=== PATIENT | female | born 1965 | race Caucasian/White ===

== ENCOUNTER 2019-02-07 08:23 | Day surgery (SDC) | payer MEDICARE ==
[~2019-02-07] VITALS: Ht 182.9 cm; Wt 74.8 kg
[~2019-02-07 08:23] MED LIST: ABILIFY MYCITE5 MG PO; ALENDRONATE35 MG PO; ALPRAZOLAM0.5 M1 PO; ALPRAZOLAM0.5 MG PO; ASPIRIN LOW DOS81 M2 PO; CALCIUM 600/VIT1 TAB PO; CENTRUM SILVER PO; CLOZAPINE100 MG PO; COLESEVELAM HY625 MG PO; CORLANOR5 MG PO; CYANOCOBAL1000 MCG/M IM; DEPLIN PO; FLUOXETINE40 MG PO; HUMIRA40 MG/0.4 IM; KLOR-CON M2020 MEQ PO; LEVOTHYROXIN50 MCG PO; MAG-OX 400400 MG PO; METO50TA52 PO; METOPROLOL SUCC25 MG PO; OLANZAPINE10 MG PO; PRILOSEC20 MG PO; PROZAC20 MG PO; VITAMIN D31000 UNI1 PO
[2019-02-07] MEDS ORDERED: TRAMADOL HCL50 MG PO (11:10)
[2019-02-07 11:22] VITALS: BP 95/57
== END 2019-02-07 11:30 | disposition home or self-care (01) ==
LOC: ORM 08:23
PROVIDERS: ATTEND Surgery
PROC: 0JB90ZZ Excision of Buttock Subcutaneous Tissue and Fascia, Open Approach (ICD-10-PCS; principal; 2019-02-07)
DX: L72.0 Epidermal cyst (principal); K50.00 Crohn's disease of small intestine without complications; Z79.899 Other long term (current) drug therapy

== ENCOUNTER 2019-06-26 17:44 | Inpatient (IN) | payer MEDICARE ==
[2019-06-26] VITALS (8 sets, daily range): BP systolic 95–127; BP diastolic 52–81
[~2019-06-26] VITALS: Ht 182.9 cm; Wt 69.1 kg
[~2019-06-26 17:44] MED LIST changes: +TRAMADOL HCL50 MG PO
--- NOTE | 2019-06-26 18:34 | NUR ---
PT PRESENTS WITH DIARRHEA THAT HAS BEEN GOING ON SINCE TUESDAY AND ABOUT 12 BOWELS A DAY. PT HAS AN ILEOSTOMY. PT STATES THAT HER PROVIDER ASKED HER TO COME INTO THE ER SINCE HER SODIUM LEVELS WERE LOW. PT DENIES ANY PAIN BUT ADMITS TO DIZZINESS, WEAKNESS, CONFUSION AND LIGHT HEADEDNESS. PT AOX4. WILL CONTINUE TO MONITOR
[2019-06-26 18:55] LABS: HEMATOCRIT 32.7 % (37.0-47.0); HEMOGLOBIN 11.5 g/dl (12.0-16.0); IMMATURE GRANULOCYTES 0.5 % (0.0-5.0); MEAN CELL VOLUME 79.8 fL CALC (80.0-100.0); MEAN CORPUSCULAR HGB CONC 35.2 g/L CALC (32.0-36.0); NEUT# 4.99 thou/uL (2.00-7.15); RED BLOOD COUNT 4.1 mill/uL (4.20-5.60); RED CELL DISTRI WIDTH 15.8 % (11.5-15.5)
[2019-06-26 19:16] LABS: ALBUMIN 4.4 g/dL (3.2-5.0); ALKALINE PHOSPHATASE 121 u/l (38-126); BUN 18 mg/dL (7-17); BUN/CREATININE RATIO 25 (12-20 (CALC)); CARBON DIOXIDE 33 mmol/l (22-30); CREATININE 0.7 mg/dL (0.5-1.0); GFR > 60 ML/MIN (>=60 (CALC)); GFR FOR AFR.AMER. > 60 ML/MIN (>=60 (CALC)); POTASSIUM 3.4 mmol/l (3.5-5.1); SGOT/AST 41 u/l (14-36); TOTAL PROTEIN 8.4 g/dL (6.3-8.2)
[2019-06-26 19:22] LABS: ANION GAP 16 (6-22 (CALC)); BILIRUBIN, TOTAL 1.5 mg/dL (0.0-1.4)
[2019-06-26 19:23] LABS: CHLORIDE 65 mmol/l (95-108); SODIUM 111 mmol/l (137-146)
[2019-06-26 19:27] LABS: MYOGLOBIN 31 ng/mL (0 - 62)
--- NOTE | 2019-06-26 19:30 | NUR ---
ACCESSED THE ILEAL POUCH FOR STOOL SAMPLE. SAMPLE APPEARS ORANGE MUDDY AND WITH SEDIMENT.
--- NOTE | 2019-06-26 20:06 | NUR ---
PT CONCERNED ABOUT WICK WORKING. DESTIN RAMIREZ ON DEVISE AND PT VERBALIZED UNDERSTANDING. PT LET AWARE THAT I WILL BE CHECKING ON HER TO SEE IF SHE WAS SUCCESSFUL ON URINATING. IF SHE CANNOT GET COMFORTABLE ENOUGH, MD WILL BE NOTIFIED FOR ANY OTHER FURTHER TREATMENT THAT MAY HAVE TO BE DONE
[2019-06-26] MEDS ORDERED: PRILOSEC20 MG/CAP PO (20:20)
--- NOTE | 2019-06-26 20:39 | NUR ---
GAVE REPORT TO MARLEY
--- NOTE | 2019-06-26 20:50 | NUR ---
PT TRANSPORTED TO ICU VIA STRETCHER STABLE AND IN NO DISTRESS. PT CARE ASSUMED TO MARLEY. Admission Note Report Given to: Transported by: Wheelchair X Stretcher Transported with: X Nurse Transporter X Patent IV O2 X Marketing Underwriter Location: X ICU MS2
--- NOTE | 2019-06-26 20:51 | NUR ---
54 yr old white female admitted icu5 per stretcher from er. trnsferred x3 to bed per pts request. bed weight obtained. ivf began as ordered. staff nuclear weapons officer shows sinus rhythm 1st degree avb pacs pvcs hr 67. pt requests her mother help with history d/t her short term memory loss. mother retrieved from waiting room. history obtained per mother & er record. oriented to room. pure wick cath placed. fall precautions iniiated.
[2019-06-26 21:06] LABS: URINE BILIRUBIN - DIPSTICK NEGATIVE (NEGATIVE); URINE BLOOD DIPSTICK NEGATIVE (NEGATIVE); URINE COLOR YELLOW; URINE GLUCOSE - DIPSTICK NEGATIVE (NEGATIVE); URINE KETONE NEGATIVE (NEGATIVE); URINE LEUK ESTERASE NEGATIVE (NEGATIVE); URINE NITRITE - DIPSTICK NEGATIVE (Negative); URINE PH 7.5 (4.5-8.0); URINE PROTEIN - DIPSTICK NEGATIVE (NEG-TRACE); URINE SPECIFIC GRAVITY <=1.005
--- NOTE | 2019-06-26 21:25 | NUR ---
lab here. blood drawn.
--- NOTE | 2019-06-26 21:50 | NUR ---
SONATA 5MG PO GIVEN PER REQUEST FOR SLEEP.
[2019-06-26 21:59] LABS: ANION GAP 15 (6-22 (CALC)); BUN 15 mg/dL (7-17); BUN/CREATININE RATIO 22 (12-20 (CALC)); CARBON DIOXIDE 31 mmol/l (22-30); CHLORIDE 72 mmol/l (95-108); CREATININE 0.7 mg/dL (0.5-1.0); GFR > 60 ML/MIN (>=60 (CALC)); GFR FOR AFR.AMER. > 60 ML/MIN (>=60 (CALC)); POTASSIUM 3.3 mmol/l (3.5-5.1)
[2019-06-26 22:04] LABS: SODIUM 115 mmol/l (137-146)
[2019-06-27] VITALS (21 sets, daily range): BP systolic 80–107; BP diastolic 46–65
--- NOTE | 2019-06-27 00:01 | NUR ---
eyes closed. no distress. school librarian shows sinus rebecca 1st degree avb pvcs pacs.
--- NOTE | 2019-06-27 00:35 | NUR ---
lab here. blood drawn.
--- NOTE | 2019-06-27 01:00 | NUR ---
awake. xanax 0.5mg po given per request for sleeo.
[2019-06-27 01:04] LABS: ANION GAP 16 (6-22 (CALC)); BUN 14 mg/dL (7-17); BUN/CREATININE RATIO 25 (12-20 (CALC)); CARBON DIOXIDE 31 mmol/l (22-30); CHLORIDE 74 mmol/l (95-108); CREATININE 0.6 mg/dL (0.5-1.0); GFR > 60 ML/MIN (>=60 (CALC)); GFR FOR AFR.AMER. > 60 ML/MIN (>=60 (CALC)); POTASSIUM 3.4 mmol/l (3.5-5.1)
[2019-06-27 01:06] LABS: SODIUM 118 mmol/l (137-146)
--- NOTE | 2019-06-27 02:00 | NUR ---
eyes closed. no apparent distress. patient monitor shows sinus rhythm 1st degree avb pacs pvcs hr 60.
--- NOTE | 2019-06-27 05:00 | NUR ---
lab here. blood drawn.
[2019-06-27 05:41] LABS: ANION GAP 16 (6-22 (CALC)); BUN 14 mg/dL (7-17); BUN/CREATININE RATIO 26 (12-20 (CALC)); CARBON DIOXIDE 30 mmol/l (22-30); CHLORIDE 77 mmol/l (95-108); CREATININE 0.5 mg/dL (0.5-1.0); GFR > 60 ML/MIN (>=60 (CALC)); GFR FOR AFR.AMER. > 60 ML/MIN (>=60 (CALC)); POTASSIUM 3.2 mmol/l (3.5-5.1); SODIUM 120 mmol/l (137-146)
--- NOTE | 2019-06-27 06:00 | NUR ---
awake. admits "i feel better." no loose stool from ileostomy this shift. pure wick cath conts.
--- NOTE | 2019-06-27 07:45 | NUR ---
PT SITTING UP IN BED, EATING BREAKFAST. A&Ox3. LUNGS CTA, BREATHING EVEN/UNLABORED. S1/S2, STRONG PULSES x4. CAP REFILL -3SEC. SKIN WARM/DRY/PINK. IV SITE HEALTHY. ABD SOFT/DISTENDED/NONTENDER, ILLEOSTOMY PINK/WET; LAST CHANGED YESTERDAY, SMALL AMOUNT OF GOSS LOOSE STOOL IN BAG. ACTIVE BS. DERIK. SPEECH SOUNDS SLURRED. BED IN LOWEST POSTION, WHEELS LOCKED, TOP RAILS UP X2, CALLBELL W/IN REACH.
--- NOTE | 2019-06-27 08:10 | NUR ---
DR REAVES @BEDSIDE WITH PT.
--- NOTE | 2019-06-27 10:15 | NUR ---
PTS OSTOMY EMPTIED OF WATERY GOSS STOOL. PT STATES SHE IS "FARTING" HER OSTOMY HERSELF.
--- NOTE | 2019-06-27 10:27 | NUR ---
Pt consented to receive Pneumococcal vaccination, however states she has received this in the past. No indication to re-vaccinate until pt reaches 65yrs old.
[2019-06-27 10:39] LABS: ANION GAP 15 (6-22 (CALC)); BUN 12 mg/dL (7-17); BUN/CREATININE RATIO 18 (12-20 (CALC)); CARBON DIOXIDE 31 mmol/l (22-30); CHLORIDE 80 mmol/l (95-108); CREATININE 0.6 mg/dL (0.5-1.0); GFR > 60 ML/MIN (>=60 (CALC)); GFR FOR AFR.AMER. > 60 ML/MIN (>=60 (CALC)); SODIUM 123 mmol/l (137-146)
--- NOTE | 2019-06-27 11:30 | NUR ---
PT SITTING UP IN BED, EATING LUNCH. NO S/S OF DISTRESS AT THIS TIEM.
--- NOTE | 2019-06-27 12:40 | NUR ---
FATHER @BEDSIDE BUT PT SLEEPING, PTS "MOTHER WILL BE BY LATER"
--- NOTE | 2019-06-27 13:31 | NUR ---
PT EMPTIED OSTOMY BAG, WHICH FILLED RIGHT BACK UP AGAIN. PT MEDICATED WITH ANTIDIARRHEA MEDICATIONS.
[2019-06-27 13:43] LABS: ANION GAP 18 (6-22 (CALC)); BUN 12 mg/dL (7-17); BUN/CREATININE RATIO 23 (12-20 (CALC)); CARBON DIOXIDE 24 mmol/l (22-30); CHLORIDE 84 mmol/l (95-108); CREATININE 0.5 mg/dL (0.5-1.0); GFR > 60 ML/MIN (>=60 (CALC)); GFR FOR AFR.AMER. > 60 ML/MIN (>=60 (CALC)); POTASSIUM 3.4 mmol/l (3.5-5.1); SODIUM 123 mmol/l (137-146)
--- NOTE | 2019-06-27 15:50 | NUR ---
PTS MOM @BEDSIDE. PT AWAKE, LAYING IN BED, TALKING. NO S/S OF DISTRESS. CALLBELL W/IN REACH. WILL CONTINUE OT MONITOR.
--- NOTE | 2019-06-27 16:11 | NUR ---
PT STATES HER OSTOMY WAS LEAKING; MOM BROUGHT PTS EMERGENCY KIT; PIPE LINE INSPECTOR CHANGED OSTOMY.
--- NOTE | 2019-06-27 17:13 | NUR ---
LAB @BEDSIDE FOR DRAW.
[2019-06-27 17:35] LABS: BUN 12 mg/dL (7-17); BUN/CREATININE RATIO 19 (12-20 (CALC)); CHLORIDE 81 mmol/l (95-108); CREATININE 0.6 mg/dL (0.5-1.0); GFR > 60 ML/MIN (>=60 (CALC)); GFR FOR AFR.AMER. > 60 ML/MIN (>=60 (CALC)); POTASSIUM 3.5 mmol/l (3.5-5.1); SODIUM 125 mmol/l (137-146)
[2019-06-27 17:47] LABS: ANION GAP 16 (6-22 (CALC)); CARBON DIOXIDE 32 mmol/l (22-30)
--- NOTE | 2019-06-27 20:00 | NUR ---
REPORT RECEIVED. ROUNDS MADE AND PLAN OF CARE REVIEWED. DENIES PAIN OR NEEDS AT THIS TIME. SINUS RHYTHM WITH FIRST DEGREE AV BLOCK ON TELEMETRY. MILD HYPOTENSION 84/48 ON L ARM. 105/52 WHEN RECHECKED ON RUE.
--- NOTE | 2019-06-27 22:00 | NUR ---
IVF CONT VIA RAC #20 CATHETER. SBP REMAINS 80-90S WITH MAP AT OR ABOVE 90. HS TOPROL XL HELD CONTRAINDICATED FOR HYPOTENSION. REFER TO FLOWSHEETS FOR COMPLETE ASSESSMENT. PRN MEDS REVIEWED AND PT AWARE MAY REQUEST SONATA AND OR IMMODIUM. NOT NEEDED AT THIS TIME.
[2019-06-28] VITALS (9 sets, daily range): BP systolic 82–112; BP diastolic 49–64
--- NOTE | 2019-06-28 | NUR ---
IVF CHANGED TO NS. LAST SERUM SODIUM LEVEL 125. WILL RECHECK IN AM.
--- NOTE | 2019-06-28 02:00 | NUR ---
REMAINS STABLE AND AFEBRILE. ONLY 100 ML LIQUID STOOL FROM COLOSTOMY SO FAR THIS SHIFT. IMMODIUM MADE AVAILABLE AND OFFERED BUT NOT NEEDED. WILL CONTINUE TO MONITOR.
--- NOTE | 2019-06-28 04:20 | NUR ---
PT C/O TIGHTNESS IN CHEST AFTER UP TO BEDSIDE COMMODE. ALL VITALS STABLE WITH HEART RATE 66 RHYTHM SINUS. SKIN PINK WARM AND DRY. PT REQUESTS XANAX AND STATES SHE HAS ANXIETY AND IT PRESENTS LIKE THIS. 0.5MG PO XANAX GIVEN. STAYED AT BEDSIDE AND SPOKE WITH PT, TIGHTNESS RESOLVED WITHIN 10 TO 15 MINUTES.
[2019-06-28 05:42] LABS: HEMATOCRIT 31.7 % (37.0-47.0); HEMOGLOBIN 10.6 g/dl (12.0-16.0); MEAN CORPUSCULAR HGB 27.7 pG CALC (26.0-32.0); MEAN CORPUSCULAR HGB CONC 33.4 g/L CALC (32.0-36.0); RED BLOOD COUNT 3.82 mill/uL (4.20-5.60); RED CELL DISTRI WIDTH 16.2 % (11.5-15.5)
--- NOTE | 2019-06-28 06:08 | NUR ---
RESTING WELL AFTER XANAX GIVEN. AWAKENED BRIEFLY FOR AM LABWORK AND MORNING MEDS. BP REMAINS LOWER END OF NORMAL W/MAP WNL.
[2019-06-28 06:13] LABS: ANION GAP 13 (6-22 (CALC)); BUN 10 mg/dL (7-17); BUN/CREATININE RATIO 15 (12-20 (CALC)); CARBON DIOXIDE 32 mmol/l (22-30); CHLORIDE 85 mmol/l (95-108); CREATININE 0.7 mg/dL (0.5-1.0); GFR > 60 ML/MIN (>=60 (CALC)); GFR FOR AFR.AMER. > 60 ML/MIN (>=60 (CALC)); POTASSIUM 3.4 mmol/l (3.5-5.1); SODIUM 126 mmol/l (137-146)
--- NOTE | 2019-06-28 07:00 | NUR ---
RECVD REPORT FROM WONG MCGINNIS @START OF SHIFT.
--- NOTE | 2019-06-28 09:02 | NUR ---
UA COLLECTED, SENT TO LAB.
--- NOTE | 2019-06-28 13:03 | NUR ---
EMPTIED OSTOMY x2. PT MEDICATED FOR DIARRHEA.
[2019-06-28 14:13] LABS: ANION GAP 11 (6-22 (CALC)); BUN 12 mg/dL (7-17); BUN/CREATININE RATIO 16 (12-20 (CALC)); CARBON DIOXIDE 35 mmol/l (22-30); CHLORIDE 90 mmol/l (95-108); CREATININE 0.8 mg/dL (0.5-1.0); GFR > 60 ML/MIN (>=60 (CALC)); GFR FOR AFR.AMER. > 60 ML/MIN (>=60 (CALC)); POTASSIUM 3.6 mmol/l (3.5-5.1); SODIUM 132 mmol/l (137-146)
--- NOTE | 2019-06-28 15:43 | NUR ---
PTS ILLEOSTOMY EMPTIED 6X SINCE LUNCH TODAY OF GOSS LIQUID STOOL. PARTIAL BATH COMPLETED, FULL LINEN CHANGE. PT NOW SLEEPING IN BED, MOM READING A BOOK @BEDSIDE.
--- NOTE | 2019-06-28 18:13 | NUR ---
CONTACTED DR REAVES R/T DR DONG RECOMMENDATION OF SODIUM TABS. PER MD, NO NEED FOR SALT TABS, DECREASE FREE WATER.
--- NOTE | 2019-06-28 18:35 | NUR ---
PT TAKEN DOWN TO MOTHERS CAR BY WITH ALL HER BELONGINGS IN STABLE CONDITION. PT ABLE TO TRANSFER ON OWN.
--- NOTE | 2019-06-28 18:36 | NUR ---
PT/MOTHER EDUCATED ON DC INSTRUCTIONS.
== END 2019-06-28 18:36 | disposition home or self-care (01) | DRG 641 ==
LOC: ED 17:44 → ED-I 19:23 → ED 19:36 → ICU 19:37
PROVIDERS: Emergency Medicine; ADMIT Internal Medicine; ATTEND Internal Medicine
DX: E87.1 Hypo-osmolality and hyponatremia (principal); K50.90 Crohn's disease, unspecified, without complications; E87.8 Other disorders of electrolyte and fluid balance, not elsewhere classified; I48.91 Unspecified atrial fibrillation; F20.9 Schizophrenia, unspecified; E03.9 Hypothyroidism, unspecified; E87.3 Alkalosis; D64.9 Anemia, unspecified; E87.6 Hypokalemia; E86.0 Dehydration; E86.1 Hypovolemia; Z93.3 Colostomy status; Z90.49 Acquired absence of other specified parts of digestive tract; I10 Essential (primary) hypertension; R00.2 Palpitations

== ENCOUNTER 2019-07-02 14:15 | Inpatient (IN) | payer MEDICARE ==
[~2019-07-02] VITALS: Ht 182.9 cm; Wt 68.0 kg
[~2019-07-02 14:15] MED LIST changes: +PRILOSEC20 MG/CAP PO
[2019-07-02 14:50] VITALS: BP 99/67
[2019-07-02 15:40] LABS: ALBUMIN 4.4 g/dL (3.2-5.0); ALKALINE PHOSPHATASE 109 u/l (38-126); BUN 36 mg/dL (7-17); BUN/CREATININE RATIO 40 (12-20 (CALC)); CARBON DIOXIDE 30 mmol/l (22-30); CHLORIDE 73 mmol/l (95-108); CREATININE 0.9 mg/dL (0.5-1.0); GFR > 60 ML/MIN (>=60 (CALC)); GFR FOR AFR.AMER. > 60 ML/MIN (>=60 (CALC)); POTASSIUM 4.4 mmol/l (3.5-5.1); SGOT/AST 30 u/l (14-36); TOTAL PROTEIN 8.2 g/dL (6.3-8.2)
[2019-07-02 15:41] LABS: ANION GAP 17 (6-22 (CALC)); BILIRUBIN, TOTAL 0.7 mg/dL (0.0-1.4)
[2019-07-02 15:42] LABS: SODIUM 116 mmol/l (137-146)
--- NOTE | 2019-07-02 16:00 | NUR ---
PT ARRIVES BY WHEELCHAIR FROM [facility], SENT BY DR REAVES. PT PLACED ON MONITOR, IV STARTED, BLOOD DRAWN, IVF BOLUSED ORDERED. PT WITH ILEOSTOMY, HEARD WITH HYPERACTIVE BOWEL SOUNDS. NO REPORT OF PAIN. PT DOES SAY THAT SHE FEELS WEAK AFTER DIARRHEA FOR SEVERAL DAYS. PT PROPERLY ASKS FOR ASSIST WHEN NEEDING TO USE BSC.
[2019-07-02 19:13] VITALS: BP 96/72
--- NOTE | 2019-07-02 19:30 | NUR ---
PATIENT RESTING IN BED AT THIS TIME-C/O FEELING WEAK. FAMILY AT BEDSIDE VISITING. PATIENT IS AWAKE ALERT AND ORIENTEDX3. TELE MONITOR IN PLACE. IV SITE TP LEFT FOREARM INTACT WITH IVF NS PATENT AND INFUSING AT 125CC/HR. SITE IS HEALTHY AT THIS TIME. SAFETY PRECAUTIONS REINFORCED. CALL LIGHT IN REACH. WILL CONT TO MONITOR.
[2019-07-02 20:23] LABS: HEMATOCRIT 32.7 % (37.0-47.0); HEMOGLOBIN 11.2 g/dl (12.0-16.0); IMMATURE GRANULOCYTES 0.4 % (0.0-5.0); MEAN CELL VOLUME 81.3 fL CALC (80.0-100.0); MEAN CORPUSCULAR HGB 27.9 pG CALC (26.0-32.0); MEAN CORPUSCULAR HGB CONC 34.3 g/L CALC (32.0-36.0); NEUT# 4.1 thou/uL (2.00-7.15); RED BLOOD COUNT 4.02 mill/uL (4.20-5.60); RED CELL DISTRI WIDTH 15.1 % (11.5-15.5)
[2019-07-02 20:44] LABS: BUN 30 mg/dL (7-17); BUN/CREATININE RATIO 32 (12-20 (CALC)); CARBON DIOXIDE 29 mmol/l (22-30); CREATININE 0.9 mg/dL (0.5-1.0); GFR > 60 ML/MIN (>=60 (CALC)); GFR FOR AFR.AMER. > 60 ML/MIN (>=60 (CALC)); POTASSIUM 3.7 mmol/l (3.5-5.1)
[2019-07-02 20:47] LABS: ANION GAP 15 (6-22 (CALC)); CHLORIDE 82 mmol/l (95-108); SODIUM 122 mmol/l (137-146)
[2019-07-02] MEDS ORDERED: CREON24000 UNT PO (20:48)
[2019-07-02] MEDS ORDERED: WELCHOL625 MG PO (20:48)
[2019-07-02] MEDS ORDERED: OLANZAPINE ODT20 MG PO (20:49)
[2019-07-02] MEDS ORDERED: FLUOXETINE40 MG PO (20:49)
[2019-07-02] MEDS ORDERED: [UNRECOGNIZED DRUG - OTHER] PO (20:50)
[2019-07-02] MEDS ORDERED: XARELTO20 MG PO (20:50)
[2019-07-02] MEDS ORDERED: SYNTHROID25 MCG PO (20:52)
[2019-07-02 21:09] VITALS: BP 98/52
--- NOTE | 2019-07-02 22:30 | NUR ---
PATIENT RESTING IN BED. IVF CHANGED TO D5NS INFUSING VIA LEFT FOREARM SITE AT 100CC/HR. SITE REMAINS HEALTHY AT THIS TIME. AZACTAM HUNG ORDERED. PATIENT MEDICATED WITH ZYPREXA 25MG INSTEAD OF 30MG PO DUE TO UNAVAILABILTY OF LAST 5MG TAB TO NSG MANAGER SIGN AT THIS TIME. PATIENT MEDICATED WITH XANAX 5MG PO PER PATIENT REQUEST. PATIENI WITH ILEOSTOMY DRAINING LARGE AMT OF GOSS LIQUID. SAFETY PRECAUTIONS REINFORCED. CALL LIGHT IN REACH. WILL CONT TO MONITOR.
[2019-07-03 00:12] VITALS: BP 84/52
[2019-07-03 04:00] VITALS: BP 101/64
--- NOTE | 2019-07-03 04:15 | NUR ---
PATIENT RESTING IN BED ASSISTED TO BSC TO VOID. ASSIST BACK TO THE SIDE OF THE BED AND ILEOSTOMY APPLIANCE EMPTIED FOR 500CC OF LIQUID GOSS FLUID. MIN ASSIST WITH EMPTING THE APPLIANCE. APPLIANCE IS INTACT AT THIS TIME. BACK IN BED. TELE MONITOR IN PLACE. IV SITE TO LEFT FOREARM INTACT WITH IVF D5NS PATENT AND INFUSING AT 100CC/HR. VS TAKEN AND RECORDED. SAFETY PRECAUTIONS REINFORCED. CALL LIGHT IN REACH. WILL CONT TO MONITOR.
[2019-07-03 05:45] LABS: ANION GAP 14 (6-22 (CALC)); BUN 25 mg/dL (7-17); BUN/CREATININE RATIO 31 (12-20 (CALC)); CARBON DIOXIDE 31 mmol/l (22-30); CHLORIDE 85 mmol/l (95-108); CREATININE 0.8 mg/dL (0.5-1.0); GFR > 60 ML/MIN (>=60 (CALC)); GFR FOR AFR.AMER. > 60 ML/MIN (>=60 (CALC)); POTASSIUM 3.5 mmol/l (3.5-5.1); SODIUM 127 mmol/l (137-146)
[2019-07-03 08:00] VITALS: BP 91/56
--- NOTE | 2019-07-03 09:00 | NUR ---
PT IS ALERT, AWAKE, RESTS IN THE BED IN NO DISTRESS. LUNGS CLEAR, RA. PT WITH ILEOSTOMY, HAS HAD SEVERAL GOSS WATERY STOOLS THIS MORNING.
[2019-07-03 10:32] VITALS: BP 91/58
[2019-07-03] MEDS ORDERED: MULTIVITAMIN AD1 TAB PO (11:10)
[2019-07-03] MEDS ORDERED: OLANZAPINE20 MG PO (11:12)
--- NOTE | 2019-07-03 14:00 | NUR ---
PT WITH ILEOSTOMY DRAINING WATERY STOOL, HAS BEEN EMPTIED 3 TIMES. PT PROVIDES CARE FOR IT WITH STANDBY ASSIST TO EMPTY GRADUATE.
--- NOTE | 2019-07-03 16:10 | NUR ---
PT CONTINUES TO EMPTY HER ILEOSTOMY BAG AND CALLING TO HAVE IT EMPTIED. LIQUID HAS THICKENED SOMEWHAT, BUT IS STILL LOOSER THAN HER NORMAL. PT CONCERNED ABOUT DEHYDRATION.
[2019-07-03 16:12] VITALS: BP 92/54
--- NOTE | 2019-07-03 19:30 | NUR ---
PATIENT RESTING IN BED AT THIS TIME-AWAKE ALERT AND ORIENTEDX3. PATIENT STATES THAT SHE IS FEELING SOME IMPROVED. TELE MONITOR IN PLACE. ILEOSTOMY APPLIANCE INTACT TO LEFT ABD WITH LOOSE GOSS COLORED DRAINAGE. IV SITE TO LEFT FOREARM INTACT WITH D5NS PATENT AND INFUSING AT 100CC/HR. SITE IS HEALTHY AT THIS TIME. UP TO THE BSC TO VOID YELLOW URINE. SAFETY PRECAUTIONS REINFORCED. CALL LIGHT IN REACH. WILL CONT TO MONITOR.
[2019-07-03 19:47] VITALS: BP 95/49
--- NOTE | 2019-07-03 20:55 | NUR ---
HS MEDS GIVEN ORDERED. XANAX 0.5MG PO GIVEN PER PATIENT REQUEST. NO OTHER NEEDS VOICED. CALL LIGHT IN REACH. WILL CONT TO MONITOR.
[2019-07-04 00:10] VITALS: BP 99/61
--- NOTE | 2019-07-04 01:09 | NUR ---
APPEARS SLEEPING AT THIS TIME WITH EYES CLOSED. RESPS ARE EVEN AND UNLABORED . IVF PATENT AND INFUSING AT 100CC/HR VIA LEFT FOREARM SITE AT 100CC/HR. TELE MONITOR IN PLACE. CALL LIGHT IN REACH. WILL CONT TO MONITOR.
--- NOTE | 2019-07-04 04:21 | NUR ---
PATIENT RESTING IN BED AT THIS TIME WITH EYES CLOSED. HOB ELEVATED. RESPS ARE EVEN AND UNLABORED. IV SITE TO LEFT FOREARM INTACT WITH IVF D5NS PATENT AND INFUSING AT 100CC/HR. SITE IS HEALTHY AT THIS TIME. TELE MONITOR IN PLACE. CALL LIGHT IN REACH. WILL CONT TO MONITOR.
[2019-07-04 05:01] VITALS: BP 97/60
[2019-07-04 06:05] LABS: ANION GAP 11 (6-22 (CALC)); BUN 12 mg/dL (7-17); BUN/CREATININE RATIO 18 (12-20 (CALC)); CARBON DIOXIDE 28 mmol/l (22-30); CREATININE 0.7 mg/dL (0.5-1.0); GFR > 60 ML/MIN (>=60 (CALC)); GFR FOR AFR.AMER. > 60 ML/MIN (>=60 (CALC)); POTASSIUM 3.2 mmol/l (3.5-5.1); SODIUM 132 mmol/l (137-146)
[2019-07-04 06:38] LABS: CHLORIDE 96 mmol/l (95-108)
[2019-07-04 07:31] VITALS: BP 105/54
--- NOTE | 2019-07-04 09:53 | NUR ---
PT APPEARS AWAKE, ALERT, APPROPRIATE. PT HAS EMPTIED ILEOSTOMY BAG, SEEN TO BE SOFT CONSISTENCY, NOT WATERY YESTERDAY. PT PROVIDED POTASSIUM THIS MORNING PER ORDER. PT HOPES TO GO HOME TODAY.
[2019-07-04 11:08] VITALS: BP 91/50
[2019-07-04] MEDS ORDERED: IMODIUM2 MG PO (11:24)
--- NOTE | 2019-07-04 14:24 | NUR ---
PT HAS BEEN DISCHARGED TO HOME AFTER BEING SEEN BY DR REAVES. PT LEAVES IN STABLE CONDITION, VERBALIZED UNDERSTANDING OF DC INSTRUCTIONS. PT LEAVES DM IN STABLE CONDITION.
== END 2019-07-04 14:19 | disposition home or self-care (01) | DRG 641 ==
LOC: MS2 14:15
PROVIDERS: ADMIT Internal Medicine; ATTEND Internal Medicine
DX: E87.1 Hypo-osmolality and hyponatremia (principal); K50.90 Crohn's disease, unspecified, without complications; K91.2 Postsurgical malabsorption, not elsewhere classified; E87.8 Other disorders of electrolyte and fluid balance, not elsewhere classified; I48.91 Unspecified atrial fibrillation; F20.9 Schizophrenia, unspecified; R19.7 Diarrhea, unspecified; Z79.01 Long term (current) use of anticoagulants; Z93.3 Colostomy status; I10 Essential (primary) hypertension
CPT/HCPCS: Q9967

== ENCOUNTER 2019-08-20 | Emergency (ER) | payer MEDICARE ==
[~2019-08-20] MED LIST changes: +CREON24000 UNT PO; +IMODIUM2 MG PO; +MULTIVITAMIN AD1 TAB PO; +OLANZAPINE ODT20 MG PO; +OLANZAPINE20 MG PO; +SYNTHROID25 MCG PO; +WELCHOL625 MG PO; +XARELTO20 MG PO; +[UNRECOGNIZED DRUG - OTHER] PO
[2019-08-20] MEDS ORDERED: SOTALOL HCL80 MG PO (19:58)
[2019-08-20] MEDS ORDERED: ASPIRIN CHEWABL81 MG PO (19:59)
[2019-08-20 20:28] LABS: IMMATURE GRANULOCYTES 0.3 % (0.0-5.0); MEAN CORPUSCULAR HGB 27.7 pG CALC (26.0-32.0); MEAN CORPUSCULAR HGB CONC 34.2 g/dL CAL (32.0-36.0); NEUT# 5.12 thou/uL (2.00-7.15); RED BLOOD COUNT 4.69 mill/uL (4.20-5.60); RED CELL DISTRI WIDTH 13.9 % (11.5-15.5)
[2019-08-20 20:45] LABS: ALBUMIN 4.6 g/dL (3.2-5.0); ALKALINE PHOSPHATASE 114 u/l (38-126); AMYLASE 66 u/l (30-110); BUN 32 mg/dL (7-17); BUN/CREATININE RATIO 34 (12-20 (CALC)); CARBON DIOXIDE 27 mmol/l (22-30); CHLORIDE 91 mmol/l (95-108); CREATININE 0.9 mg/dL (0.5-1.0); GFR > 60 ML/MIN (>=60 (CALC)); GFR FOR AFR.AMER. > 60 ML/MIN (>=60 (CALC)); LIPASE 242 u/l (23-300); POTASSIUM 3.8 mmol/l (3.5-5.1); SGOT/AST 30 u/l (14-36); TOTAL PROTEIN 8.5 g/dL (6.3-8.2)
[2019-08-20 20:46] LABS: ACT PARTIAL THROMBO TIME 28.8 SECONDS (20.0-32.5); INTERNATIONAL NORMALIZED RATIO 1.1 RATIO (0.7-1.3); PROTHROMBIN TIME 11.4 SECONDS (9.0-12.5)
[2019-08-20 20:51] LABS: ANION GAP 14 (6-22 (CALC)); BILIRUBIN, TOTAL 0.6 mg/dL (0.0-1.4); SODIUM 128 mmol/l (137-146)
[2019-08-20 22:21] LABS: URINE BILIRUBIN - DIPSTICK NEGATIVE (NEGATIVE); URINE BLOOD DIPSTICK NEGATIVE (NEGATIVE); URINE COLOR YELLOW; URINE GLUCOSE - DIPSTICK NEGATIVE (NEGATIVE); URINE KETONE NEGATIVE (NEGATIVE); URINE LEUK ESTERASE NEGATIVE (NEGATIVE); URINE NITRITE - DIPSTICK NEGATIVE (Negative); URINE PROTEIN - DIPSTICK NEGATIVE (NEG-TRACE); URINE SPECIFIC GRAVITY <=1.005; URINE UROBILINOGEN - DIPSTICK 0.2 E.U./dL (0.2)
--- NOTE | 2019-08-26 08:09 | NUR ---
PRELIMINARY BLOOD CULTURES SHOW GRAM POSITIVE COCCI. SPOKE WITH NURSE DELA CRUZ IN ICU @ [facility]. FAXED RESULTS TO [phone]
== END 2019-08-20 23:37 ==
DX: K43.6 Other and unspecified ventral hernia with obstruction, without gangrene (principal); K50.90 Crohn's disease, unspecified, without complications; E87.1 Hypo-osmolality and hyponatremia; Z93.2 Ileostomy status

== ENCOUNTER 2019-11-14 13:07 | Emergency (ER) | payer MEDICARE ==
[~2019-11-14] VITALS: Ht 182.9 cm; Wt 72.0 kg
[~2019-11-14 13:07] MED LIST changes: +ASPIRIN CHEWABL81 MG PO; +SOTALOL HCL80 MG PO
[2019-11-14 13:55] VITALS: BP 127/68
== END 2019-11-14 13:55 | disposition home or self-care (01) ==
LOC: ED 13:07
DX: K94.19 Other complications of enterostomy (principal); L98.491 Non-pressure chronic ulcer of skin of other sites limited to breakdown of skin; I48.91 Unspecified atrial fibrillation; Y83.3 Surgical operation with formation of external stoma as the cause of abnormal reaction of the patient, or of later complication, without mention of misadventure at the time of the procedure; Z90.49 Acquired absence of other specified parts of digestive tract

== ENCOUNTER 2021-01-20 15:52 | Observation (INO) | payer MEDICARE ==
[~2021-01-20] VITALS: Ht 182.9 cm; Wt 66.0 kg
--- NOTE | 2021-01-20 16:02 | NUR ---
PT TO ROOM VIA WHEELCHAIR FOR TRIAGE. DAD ACCOMPANYING PT.
[2021-01-20 17:33] LABS: URINE BILIRUBIN - DIPSTICK NEGATIVE (NEGATIVE); URINE BLOOD DIPSTICK TRACE-INTACT (NEGATIVE); URINE COLOR YELLOW; URINE GLUCOSE - DIPSTICK NEGATIVE (NEGATIVE); URINE KETONE NEGATIVE (NEGATIVE); URINE PH 6.5 (4.5-8.0); URINE PROTEIN - DIPSTICK NEGATIVE (NEG-TRACE); URINE SPECIFIC GRAVITY <=1.005; URINE UROBILINOGEN - DIPSTICK 0.2 E.U./dL (0.2)
[2021-01-20 17:37] LABS: URINE LEUK ESTERASE MODERATE (NEGATIVE); URINE NITRITE - DIPSTICK NEGATIVE (Negative)
[2021-01-20 17:38] LABS: URINE SQUAMOUS EPITHELIAL CELL FEW EPI/hpf (0-FEW)
[2021-01-20 17:41] LABS: HEMATOCRIT 38.8 % (37.0-47.0); HEMOGLOBIN 13.2 g/dl (12.0-16.0); IMMATURE GRANULOCYTES 0.3 % (0.0-5.0); NEUT# 7.5 thou/uL (2.00-7.15); RED BLOOD COUNT 4.55 mill/uL (4.20-5.60); RED CELL DISTRI WIDTH 14.8 % (11.5-15.5)
[2021-01-20 17:46] LABS: MEAN CELL VOLUME 85.3 fL CALC (80.0-100.0)
[2021-01-20 18:04] LABS: ACT PARTIAL THROMBO TIME 28.2 SECONDS (20.0-32.5); INTERNATIONAL NORMALIZED RATIO 1.4 RATIO (0.7-1.3); PROTHROMBIN TIME 14.6 SECONDS (9.0-12.5)
--- NOTE | 2021-01-20 18:23 | NUR ---
PT RESTING IN BED, NO COMPLAINTS, CALL LIGHT IN REACH, AWAITING RESULTS
[2021-01-20 18:27] LABS: ALBUMIN 3.9 g/dL (3.2-5.0); ALKALINE PHOSPHATASE 106 u/l (38-126); ANION GAP 10 (6-22 (CALC)); BILIRUBIN, TOTAL 0.6 mg/dL (0.0-1.4); BUN 18 mg/dL (7-17); BUN/CREATININE RATIO 17 (12-20 (CALC)); CARBON DIOXIDE 24 mmol/l (22-30); CHLORIDE 100 mmol/l (95-108); GFR 58 ML/MIN (>=60 (CALC)); GFR FOR AFR.AMER. > 60 ML/MIN (>=60 (CALC)); SGOT/AST 28 u/l (14-36); SODIUM 130 mmol/l (137-146); TOTAL PROTEIN 7.4 g/dL (6.3-8.2)
--- NOTE | 2021-01-20 20:25 | NUR ---
RESTING QUIETLY AWAITING TEST RESULTS.
--- NOTE | 2021-01-20 21:25 | NUR ---
NO CLINICAL CHANGE. AWAITING DISPO.
[2021-01-20] MEDS ORDERED: CREON24000 UNT PO (22:22)
[2021-01-20] MEDS ORDERED: LEXAPRO10 MG PO (22:22)
[2021-01-20] MEDS ORDERED: METOPROLOL SUCC50 MG PO (22:23)
[2021-01-20] MEDS ORDERED: XANAX0.5 MG PO (22:24)
[2021-01-20] MEDS ORDERED: COLESEVELAM HY625 MG PO (22:25)
[2021-01-20] MEDS ORDERED: MIRTAZAPINE45 M1 PO (22:26)
[2021-01-20] MEDS ORDERED: IMODIUM A-D2 M3 PO (22:28)
[2021-01-20] MEDS ORDERED: SLOWMAG PO (22:29)
[2021-01-20] MEDS ORDERED: PRILOSEC20 MG/CAP PO (22:30)
--- NOTE | 2021-01-20 22:40 | NUR ---
Admission Note Report Given to: WONG GOULD Transported by: Wheelchair X Stretcher Transported with: X Nurse Transporter X Patent IV O2 X Research And Development Specialist Location: ICU X MS2
--- NOTE | 2021-01-20 23:54 | NUR ---
PATIENT ADMITTED TO [facility] VIA STRETCHER TO ROOM 271. TRANSFERRED SELF TO ROOM BED WITH SUPERVISION. ALERT AND ORIENTED. ORIENTED PATIENT TO ROOM AND CALL MORELOS. BED IN LOWEST POSITION WITH WHEELS LOCKED.
[2021-01-21] VITALS (14 sets, daily range): BP systolic 76–112; BP diastolic 45–71
--- NOTE | 2021-01-21 | NUR ---
NOTIFIED ER PROVIDER OF PATIENTS BLOOD PRESSURES REMAINING LOW. LAST BP TAKEN WAS 88/59. SECOND BOLUS FINISHED. VANCO STARTED. INSTRUCTED TO ADMINISTED IVF AT 125ML/HR ORDERS PROVIDE AND CONTINUE TO MONITOR PATIENTS BLOOD PRESSURE. ALSO INSTRUCTED BY ED PHYSICIAN IF BP DROPS FURTHER, NOTIFY FILLING MIXER PHYSICIAN. PATIENT DOES REPORT HAVING LOW BLOOD PRESSURE.
--- NOTE | 2021-01-21 01:05 | NUR ---
CALLED MANUFACTURING SOFTWARE ENGINEER PROVIDER AND INFORMED ABOUT PATIENTS BLOOD PRESSURE CONTINUING TO REMAIN LOW. NEW ORDER GIVEN TO PROVIDE ANOTHER BOLUS OF IVF.
--- NOTE | 2021-01-21 03:05 | NUR ---
CALLED SUGAR CHIPPER MACHINE OPERATOR PROVIDER AND INFORMED OF PATIENTS BLOOD PRESSURE READING 76/45. A MANUAL BLOOD PRESSURE WAS DONE SHOWING 82/52. PATIENT COMPLAINED OF FEELING TIRED. NEW ORDERS RECEIVED. PATIENT TRANSFER TO ICU.
--- NOTE | 2021-01-21 03:38 | NUR ---
PATIENT ARRIVED TO THE FLOOR AT 0315, ROOM 5 VIA BED, ESCORTED BY BLAS BACK. PATIENT WALKED FROM OLD BED TO NEW X1 ASSIST WITHOUT DIFFICULTY. UPON ARRIVAL VS TAKEN. SB/P HAS MAINTAINED ABOVE [address] ROPER CALLED YAIMA WHITE TO HOLD LEVOPHED GTT AT THIS TIME. IVF INFUSING AT 125ML/HR. ON AUDIOLOGIST SR 61. AT 0330 B/P 103/58 61 18 100% RA. DENIES PAIN. NO ACUTE DISTRESS. ED DOCTOR AT BEDSIDE TO DO CENTRAL LINE, PT REFUSED AT THIS TIME, BED IN LOW POSITION. CALL LIGHT WITHIN REACH.
--- NOTE | 2021-01-21 03:40 | NUR ---
CALLED PATIENTS NEXT OF KIN, HER MOM MARIELA AND INFORMED HER OF PATIENTS STATUS.
--- NOTE | 2021-01-21 04:56 | NUR ---
PATIENT LAYING SEMI-FOWLERS B/P 79/49 P 60. PATIENT REPOSITIONED SUPINE B/P RECHECKED 88/51 P 64. PATIENT IS ASYMPTOMATIC. MONITORING. BED IN LOW POSITION. CALL LIGHT WITHIN REACH.
--- NOTE | 2021-01-21 05:57 | NUR ---
PATIENT C/O BACK PAIN 07/09. PATIENT NPO. EDUCATED PATIENT ON CURRENT DIET AGAIN. 1 TOOTHETTE MOISTENED WAS GIVEN TO PATIENT TO MOISTEN MOUTH. PILLOW PLACED BEHIND BACK, PATIENT LYING SLIGHYLY LEFT SIDE LYING FOR COMFORT. IVF 125 ML/HR CONTINUOUS. TOOTHETTE USED AND THROWN AWAY. PATIENT REPORTS HER BASELINE B/P IS SB/P 95ISH. SB/P MAINTAINING 89-90. NO ACUTE DISTRESS. BED IN LOW POSITION. SLIGHT [place]. CALL LIGHT WITHIN REACH.
--- NOTE | 2021-01-21 08:00 | NUR ---
PATIENT IS A/O X3, DOES GET FORGETFUL AT TIMES. 3MM PERRLA. BRISK. VITALS ARE STABLE. DRY MOUTH, SWABS OFTEN TO MOISTEN MOUTH. CLEAR SPEECH. DENIES PAIN AT THIS TIME. CLEAR LUNG SOUNDS. NO COUGH PRESENT. OSTOMY PRSENT ON RIGHT SIDE OF ABDOMEN. EMPTY, PATIENT STATES SHE CHANGES IT OUT HERSELF. STATED HER LAST BM WAS YESTERDAY. STRONG EQUAL HAND MOLDER LABELS. NO ARM DRIFT. NO EDEMA PRESENT AT THIS TIME. NO LEG DRIFT. STRONG PULSES. USES BEDSIDE COMMODE, 500 URINE OUT THIS MORNING. SAFETY MEASURES IN PLACE. CALL LIGHT IN REACH. WILL COTNINUE TO MONITOR PER HOSPITAL'S POLICY.
--- NOTE | 2021-01-21 08:20 | NUR ---
PATIENT PERFORMED ORTHOSTATIC BLOOD PRESSURES, PER DOCTOR'S ORDERS, NEATIVE RESULTS. ABLE TO TRANSFER TO [facility]. AWAITING ORDERS.
--- NOTE | 2021-01-21 08:44 | NUR ---
CALLED MEDSUR FOR A BED, PATIENT WILL BE TRANSFERRING. ORDERS ARE PLACED.
--- NOTE | 2021-01-21 09:47 | NUR ---
CALLED [facility] AGAIN FOR A BED, ROOM 271, THE NURSE ASSIGNED WAS NOT AVAILABLE AT THAT TIME, INFORMED THEM TO HAVE THE NURSE CALL ME FOR REPORT.
--- NOTE | 2021-01-21 10:30 | NUR ---
REPORT GIVEN TO ANNABELLE BACK.
--- NOTE | 2021-01-21 10:30 | NUR ---
RECIEVED REPORT FROM WONG CATHERINE
--- NOTE | 2021-01-21 10:50 | NUR ---
PT RESTING IN SEMI FOWLERS POSIITON. PT IS A/O X3. ASSESSMENT AND VITALS COMPLETED. BP 81/57, HR 69, O2 99% ON ROOM AIR.PT ASYMPTOMATIC. RESPIRATIONS ARE EVEN AND UNLABORED WITH NO DISTRESS NOTED. LUNG SOUNDS ARE CLEAR. HEART RHYTHM NORMAL. BOWEL SOUNDS ARE ACTIVE. #20G LAC INFUSING WITH IVF PER ORDER, SITE REMAINS HEALTHY AND PATENT. SKIN INTACT. COLOSTOMY IN DIANA,LIQUID STOOL NOTED. PT STATES SHE IS SELF CARE AND HAS FAMILY BRINGING IN SUPPLY. PT DENIES OF ANY PAINS OR DISCOMFORTS AT THIS TIME. JOSEPH,ANRP NOTIFIED OF BP, PATIENT CARE MANAGER INFORMED THAT IT IS NORMAL. WILL CONTINUE TO MONITOR.
--- NOTE | 2021-01-21 10:55 | NUR ---
PATIENT TRANSFERRED TO ROOM 271 MEDSUR FLOOR. VITALS ARE STABLE. MASK WAS PLACED ON PATIENT DURING TRANSFER.
--- NOTE | 2021-01-21 12:51 | NUR ---
PT RESTING IN SEMI FOWLERS POSITION WATCHING TV. REPSIRATIONS ARE EVEN AND UNLABORED WITH NO DISTRESS NOTED. #20G LAC INFUSING WITH IVF PER ORDER, SITE REMAINS HALTHY AND PATENT. AID ASSISTED PT WTH EMPTYING COLOMSTOMY BAG. PT DENIES OF ANY ADDITIONAL NEEDS. ALL SAFETY PRECAUTIONS ARE IN PLACE WITH CALL LIGHT IN REACH. WILL CONTINUE TO MONITOR
--- NOTE | 2021-01-21 15:11 | NUR ---
DR DEVLIN AT BEDSIDE.
--- NOTE | 2021-01-21 15:59 | NUR ---
PT RESTING IN SEMI FOWLERS POSITION ON PHONE. RESPIRATIONS ARE EVEN AND UNLABORED WITH NO DISTRESS NOTED, ROOM AIR. #20G LAC INFUSING WITH IVF PER ORDER, SITE REMAINS HEALTHY AND PATENT. COLOSTOMY BAG TO DIANA REMAINS IN PLACE. SUPPLIES BROUGHT IN BY FAMILY. ORDERS FROM DR RODRIGUEZ TO ADVANCE DIET TOLERATED. PT TOLERATING FULL LIQUIDS WELL. PT DENIES OF ANY PAINS OR DISCOMFORTS AT THIS TIME.ALL SAFETY PRECAUTIONS ARE IN PLACE WITH CALL LIGHT IN REACH. WILL CONTINUE TO MONITOR
--- NOTE | 2021-01-21 16:46 | NUR ---
#20G LAC INFILTARTED. UNABLE TO GET IV ACESS. JOSEPH,ANRP NOTIFIED. NO IV NEEDED AT THIS TIME DUE TO PT TOLERATING PO WELL.
--- NOTE | 2021-01-21 18:32 | NUR ---
AGRICULTURAL ECONOMICS PROFESSOR CALLED TO ROOM. PT STATES SHE MADE A MESS. COLOSTOMY BAG FILLED WITH LIQUID STOOL. PT STATES SHE HAS JUST EMPTIED IT. PT ASSISTED WITH EMPTING COLOSTOMY BAG.
--- NOTE | 2021-01-21 20:00 | NUR ---
PHYSICAL ASSESMENT COMPLETE. PT CURRENTLY DENIES PAIN OR DISCOMFORT. SCHEDULED MEDICATIONS AND PRN MEDICATION ADMINISTERED, SEE E-MAR. PT DENIES ANY NEEDS AT THIS TIME. PLAN OF CARE REVIEWED, PT DENIES QUESTIONS, VERBALIZES UNDERSTANDING. ITEMS WITHIN REACH, BED LOCKED IN LOW POSITION W/ BEDRAILS UP X2. CALL MORELOS WITHIN REACH, AGREES TO CALL PRN.
[2021-01-22] VITALS: BP 92/61
--- NOTE | 2021-01-22 01:03 | NUR ---
PT LAYING IN BED WITH EYES CLOSED, APPEARS TO BE SLEEPING, APPEARS COMFORTABLE AND IN NO DISTRESS. RESPIRATIONS REGULAR AND UNLABORED. ITEMS REMAIN WITHIN REACH, CALL MORELOS REMAINS WITHIN REACH. BED REMAINS LOCKED AND IN LOW POSITION WITH BEDRAILS UP X2. WILL CONTINUE TO MONITOR.
[2021-01-22 04:00] VITALS: BP 94/66
[2021-01-22 05:56] LABS: HEMATOCRIT 39.2 % (37.0-47.0); HEMOGLOBIN 12.7 g/dl (12.0-16.0); IMMATURE GRANULOCYTES 0.3 % (0.0-5.0); MEAN CELL VOLUME 87.7 fL CALC (80.0-100.0); MEAN CORPUSCULAR HGB 28.4 pG CALC (26.0-32.0); MEAN CORPUSCULAR HGB CONC 32.4 g/dL CAL (32.0-36.0); NEUT# 3.63 thou/uL (2.00-7.15); RED BLOOD COUNT 4.47 mill/uL (4.20-5.60); RED CELL DISTRI WIDTH 15.1 % (11.5-15.5)
[2021-01-22 06:06] LABS: BUN 10 mg/dL (7-17); BUN/CREATININE RATIO 11 (12-20 (CALC)); CHLORIDE 112 mmol/l (95-108); CREATININE 0.9 mg/dL (0.5-1.0); GFR > 60 ML/MIN (>=60 (CALC)); GFR FOR AFR.AMER. > 60 ML/MIN (>=60 (CALC)); POTASSIUM 3.9 mmol/l (3.5-5.1)
[2021-01-22 06:09] LABS: ANION GAP 13 (6-22 (CALC)); CARBON DIOXIDE 16 mmol/l (22-30); MAGNESIUM 1.9 mg/dL (1.6-2.3); SODIUM 137 mmol/l (137-146)
--- NOTE | 2021-01-22 08:03 | NUR ---
PT AWAKE SITTING IN BED, PT DENIES ANY PAIN OR DISTRESS AT THIS TIME. PT ALERT AND ORIENTED. VS AND ASSESSMENT COMPLETE. NO IV SITE HR NORMAL, LUNGS ARE CLEAR. BREATHS ARE EVEN AND UNLABORED. SAFETY MEASUSRESD ARE IN PLACE. CALL LIGHT WITHIN PATIENT REACH. COLOSTOMY INTACT REINFORCED DRESSING. WILL MONITOR PATIENT CLOSELY
[2021-01-22 10:44] VITALS: BP 112/65
--- NOTE | 2021-01-22 12:19 | NUR ---
PT ALERT AND ORIENTED. PT DENIES ANY NEEDS AT THIS TIME. WILL CONTINUE TO MONITOR PATIENT CLOSELY
[2021-01-22 13:06] VITALS: BP 109/64
--- NOTE | 2021-01-22 14:01 | NUR ---
PT GIVEN DISCHARGE INSTRUCTIONS. PT VERBALIZES UNDERSTANDING
== END 2021-01-22 13:51 | disposition home or self-care (01) ==
LOC: ED 15:52 → ED-I 20:40 → ED 21:48 → MS2 21:49 → ICU 01-21 03:00 → MS2 01-21 10:50
PROVIDERS: Physician Assistant Surgical; ADMIT Internal Medicine; ATTEND Internal Medicine
DX: K91.2 Postsurgical malabsorption, not elsewhere classified (principal); K50.90 Crohn's disease, unspecified, without complications; E86.0 Dehydration; I95.9 Hypotension, unspecified; E87.6 Hypokalemia; E87.1 Hypo-osmolality and hyponatremia; K21.9 Gastro-esophageal reflux disease without esophagitis; I48.91 Unspecified atrial fibrillation; F20.9 Schizophrenia, unspecified; F32.9 Major depressive disorder, single episode, unspecified; Z93.3 Colostomy status; Z90.49 Acquired absence of other specified parts of digestive tract; Z20.822 Contact with and (suspected) exposure to COVID-19; E83.42 Hypomagnesemia; I10 Essential (primary) hypertension
CPT/HCPCS: J3475

== ENCOUNTER 2021-12-17 10:38 | Emergency (ER) | payer MEDICARE ==
[~2021-12-17] VITALS: Ht 182.9 cm; Wt 59.0 kg
[2021-12-17] VITALS (7 sets, daily range): BP systolic 101–123; BP diastolic 55–75
[~2021-12-17 10:38] MED LIST changes: +ABILIFY30 MG PO; +CODEINE SULF PO; +DULOXETINE HCL30 MG PO; -HUMIRA40 MG/0.4 IM; +HUMIRA40 MG/0.4 SC; +IMODIUM A-D2 M3 PO; +LEXAPRO10 MG PO; +MAG-OXIDE200 MG PO; +METOPROLOL SUCC50 MG PO; +MIDODRINE HYDR2.5 MG PO; +MIRTAZAPINE15 MG PO; -OLANZAPINE ODT20 MG PO; +SOD CHLORIDE1 GM PO; +XANAX0.5 MG PO; +XIFAXAN550 MG PO
[2021-12-17] MEDS ORDERED: XARELTO15 MG PO (11:53)
[2021-12-17 11:56] LABS: BUN 27 mg/dL (7-17); BUN/CREATININE RATIO 37 (12-20 (CALC)); CARBON DIOXIDE 30 mmol/l (22-30); CHLORIDE 86 mmol/l (95-108); CREATININE 0.7 mg/dL (0.5-1.0); GFR FOR AFR.AMER. > 60 ML/MIN (>=60 (CALC)); GFR OTHER RACES > 60 ML/MIN (>=60 (CALC)); POTASSIUM 5.1 mmol/l (3.5-5.1); SGOT/AST 30 u/l (14-36)
[2021-12-17] MEDS ORDERED: IMODIUM2 MG PO (11:56)
[2021-12-17 11:57] LABS: ALBUMIN 4.4 g/dL (3.2-5.0); ALKALINE PHOSPHATASE 162 u/l (38-126); ANION GAP 16 (6-22 (CALC)); BILIRUBIN, TOTAL 0.4 mg/dL (0.0-1.4); SODIUM 127 mmol/l (137-146); TOTAL PROTEIN 8.8 g/dL (6.3-8.2)
[2021-12-17 12:02] LABS: IMMATURE GRANULOCYTES 0.4 % (0.0-5.0); MEAN CORPUSCULAR HGB 29.2 pG CALC (26.0-32.0); MEAN CORPUSCULAR HGB CONC 32.9 g/dL CAL (32.0-36.0); NEUT# 7.15 thou/uL (2.00-7.15); RED BLOOD COUNT 4.38 mill/uL (4.20-5.60); RED CELL DISTRI WIDTH 14.3 % (11.5-15.5)
[2021-12-17 12:31] LABS: HEMATOCRIT 38.9 % (37.0-47.0); HEMOGLOBIN 12.8 g/dl (12.0-16.0); MEAN CELL VOLUME 88.8 fL CALC (80.0-100.0)
[2021-12-17] MEDS ORDERED: LOPRESSOR25 M1 PO (12:44)
== END 2021-12-17 13:09 | disposition home or self-care (01) ==
LOC: ED 10:38
PROVIDERS: Emergency Medicine
DX: S00.83XA Contusion of other part of head, initial encounter (principal); W01.0XXA Fall on same level from slipping, tripping and stumbling without subsequent striking against object, initial encounter; Y92.014 Private driveway to single-family (private) house as the place of occurrence of the external cause; S09.90XA Unspecified injury of head, initial encounter; I48.91 Unspecified atrial fibrillation

== ENCOUNTER 2022-01-01 12:48 | Emergency (ER) | payer MEDICARE ==
[2022-01-01] VITALS (14 sets, daily range): BP systolic 83–106; BP diastolic 44–67
[~2022-01-01] VITALS: Ht 182.9 cm; Wt 58.0 kg
[~2022-01-01 12:48] MED LIST changes: +LOPRESSOR25 M1 PO; +XARELTO15 MG PO
[2022-01-01 13:50] LABS: HEMATOCRIT 34.6 % (37.0-47.0); HEMOGLOBIN 11.8 g/dl (12.0-16.0); IMMATURE GRANULOCYTES 0.2 % (0.0-5.0); MEAN CORPUSCULAR HGB CONC 34.1 g/dL CAL (32.0-36.0); NEUT# 5.47 thou/uL (2.00-7.15); RED BLOOD COUNT 4.07 mill/uL (4.20-5.60); RED CELL DISTRI WIDTH 14.4 % (11.5-15.5)
[2022-01-01 14:09] LABS: ALBUMIN 4.1 g/dL (3.2-5.0); ALKALINE PHOSPHATASE 158 u/l (38-126); ANION GAP 15 (6-22 (CALC)); BILIRUBIN, TOTAL 0.5 mg/dL (0.0-1.4); BUN 32 mg/dL (7-17); BUN/CREATININE RATIO 37 (12-20 (CALC)); CARBON DIOXIDE 31 mmol/l (22-30); CHLORIDE 89 mmol/l (95-108); CREATININE 0.9 mg/dL (0.5-1.0); GFR FOR AFR.AMER. > 60 ML/MIN (>=60 (CALC)); GFR OTHER RACES > 60 ML/MIN (>=60 (CALC)); LIPASE 44 u/l (23-300); MAGNESIUM 1.5 mg/dL (1.6-2.3); POTASSIUM 4.3 mmol/l (3.5-5.1); SGOT/AST 30 u/l (14-36); SODIUM 130 mmol/l (137-146); TOTAL PROTEIN 7.8 g/dL (6.3-8.2)
== END 2022-01-01 16:20 | disposition short-term general hospital (02) ==
LOC: ED 12:48
PROVIDERS: Internal Medicine
DX: K55.9 Vascular disorder of intestine, unspecified (principal); K66.8 Other specified disorders of peritoneum; K50.90 Crohn's disease, unspecified, without complications; K21.9 Gastro-esophageal reflux disease without esophagitis; I48.91 Unspecified atrial fibrillation; F32.A Depression, unspecified; Z90.49 Acquired absence of other specified parts of digestive tract; Z93.3 Colostomy status

== ENCOUNTER 2022-01-08 07:59 | Emergency (ER) | payer MEDICARE ==
[2022-01-08] VITALS (15 sets, daily range): BP systolic 78–130; BP diastolic 42–69
[~2022-01-08] VITALS: Ht 182.9 cm; Wt 55.0 kg
[2022-01-08 08:38] LABS: HEMATOCRIT 32.2 % (37.0-47.0); HEMOGLOBIN 10.5 g/dl (12.0-16.0); IMMATURE GRANULOCYTES 0.7 % (0.0-5.0); MEAN CELL VOLUME 89.4 fL CALC (80.0-100.0); MEAN CORPUSCULAR HGB 29.2 pG CALC (26.0-32.0); MEAN CORPUSCULAR HGB CONC 32.6 g/dL CAL (32.0-36.0); NEUT# 4.5 thou/uL (2.00-7.15); RED BLOOD COUNT 3.6 mill/uL (4.20-5.60); RED CELL DISTRI WIDTH 15.6 % (11.5-15.5)
[2022-01-08 08:48] LABS: ALBUMIN 3.4 g/dL (3.2-5.0); ALKALINE PHOSPHATASE 97 u/l (38-126); BUN 13 mg/dL (7-17); BUN/CREATININE RATIO 18 (12-20 (CALC)); CREATININE 0.7 mg/dL (0.5-1.0); GFR FOR AFR.AMER. > 60 ML/MIN (>=60 (CALC)); GFR OTHER RACES > 60 ML/MIN (>=60 (CALC)); SGOT/AST 33 u/l (14-36); SODIUM 136 mmol/l (137-146); TOTAL PROTEIN 7.2 g/dL (6.3-8.2)
[2022-01-08 08:50] LABS: ANION GAP 14 (6-22 (CALC)); BILIRUBIN, TOTAL 0.2 mg/dL (0.0-1.4); CARBON DIOXIDE 14 mmol/l (22-30); CHLORIDE 112 mmol/l (95-108)
[2022-01-08 08:57] LABS: URINE BILIRUBIN - DIPSTICK NEGATIVE (NEGATIVE); URINE BLOOD DIPSTICK TRACE-INTACT (NEGATIVE); URINE COLOR YELLOW; URINE GLUCOSE - DIPSTICK NEGATIVE (NEGATIVE); URINE KETONE NEGATIVE (NEGATIVE); URINE LEUK ESTERASE NEGATIVE (NEGATIVE); URINE PROTEIN - DIPSTICK NEGATIVE (NEG-TRACE); URINE SPECIFIC GRAVITY <=1.005; URINE UROBILINOGEN - DIPSTICK 0.2 E.U./dL (0.2)
[2022-01-08 09:00] LABS: URINE NITRITE - DIPSTICK NEGATIVE (Negative)
== END 2022-01-08 14:01 | disposition home or self-care (01) ==
LOC: ED 07:59
PROVIDERS: Internal Medicine
DX: E87.8 Other disorders of electrolyte and fluid balance, not elsewhere classified (principal); J98.4 Other disorders of lung; K21.9 Gastro-esophageal reflux disease without esophagitis; I48.91 Unspecified atrial fibrillation; Z90.49 Acquired absence of other specified parts of digestive tract

== ENCOUNTER 2022-02-06 20:13 | Observation (INO) | payer MEDICARE ==
[2022-02-06] VITALS (17 sets, daily range): BP systolic 80–115; BP diastolic 47–75
[~2022-02-06] VITALS: Ht 182.9 cm; Wt 61.4 kg
[~2022-02-06 20:13] MED LIST changes: +ABILIFY10 M1 PO; -ABILIFY30 MG PO; +OLANZAPINE15 MG PO
--- NOTE | 2022-02-06 20:40 | NUR ---
pt resting, medicated with Toradol , to have CT abd. Bp borderline hypotensive, will watch closely.
--- NOTE | 2022-02-06 21:00 | NUR ---
Tolerating oral contract, pt to go to CT at 2300, ns bolus infusing for BP.
[2022-02-06 21:06] LABS: HEMATOCRIT 34.1 % (37.0-47.0); HEMOGLOBIN 11.1 g/dl (12.0-16.0); IMMATURE GRANULOCYTES 0.1 % (0.0-5.0); MEAN CELL VOLUME 89.5 fL CALC (80.0-100.0); MEAN CORPUSCULAR HGB 29.1 pG CALC (26.0-32.0); MEAN CORPUSCULAR HGB CONC 32.6 g/dL CAL (32.0-36.0); NEUT# 6.77 thou/uL (2.00-7.15); RED BLOOD COUNT 3.81 mill/uL (4.20-5.60); RED CELL DISTRI WIDTH 15.2 % (11.5-15.5)
[2022-02-06 21:17] LABS: ALBUMIN 3.6 g/dL (3.2-5.0); ALKALINE PHOSPHATASE 129 u/l (38-126); ANION GAP 12 (6-22 (CALC)); BILIRUBIN, TOTAL 0.2 mg/dL (0.0-1.4); BUN 16 mg/dL (7-17); BUN/CREATININE RATIO 25 (12-20 (CALC)); CARBON DIOXIDE 28 mmol/l (22-30); CHLORIDE 100 mmol/l (95-108); CPK 47 u/l (30-165); CREATININE 0.7 mg/dL (0.5-1.0); GFR FOR AFR.AMER. > 60 ML/MIN (>=60 (CALC)); GFR OTHER RACES > 60 ML/MIN (>=60 (CALC)); LIPASE 17 u/l (23-300); MAGNESIUM 1.6 mg/dL (1.6-2.3); POTASSIUM 3.9 mmol/l (3.5-5.1); SGOT/AST 31 u/l (14-36); SODIUM 136 mmol/l (137-146); TOTAL PROTEIN 7.1 g/dL (6.3-8.2)
--- NOTE | 2022-02-06 21:20 | NUR ---
GASTROGRAFFIN STARTED.
--- NOTE | 2022-02-06 23:00 | NUR ---
Second liter infusing, LR bolus to assist in elevating BP. Pt states normally low. Bp 96/[address]
[2022-02-07] VITALS (9 sets, daily range): BP systolic 81–97; BP diastolic 48–61
--- NOTE | 2022-02-07 00:55 | NUR ---
All results back, pt to be admitted, resting comfortably. small amt of water per Dr. Perez provided tpo pt. Report to Bryce on ms.
[2022-02-07 08:46] LABS: HEMATOCRIT 34.7 % (37.0-47.0); IMMATURE GRANULOCYTES 0.2 % (0.0-5.0); MEAN CELL VOLUME 89.9 fL CALC (80.0-100.0); MEAN CORPUSCULAR HGB 28.5 pG CALC (26.0-32.0); MEAN CORPUSCULAR HGB CONC 31.7 g/dL CAL (32.0-36.0); NEUT# 4.71 thou/uL (2.00-7.15); RED BLOOD COUNT 3.86 mill/uL (4.20-5.60); RED CELL DISTRI WIDTH 15.5 % (11.5-15.5)
[2022-02-07 08:53] LABS: ALBUMIN 3.3 g/dL (3.2-5.0); ALKALINE PHOSPHATASE 124 u/l (38-126); ANION GAP 11 (6-22 (CALC)); BUN 14 mg/dL (7-17); BUN/CREATININE RATIO 21 (12-20 (CALC)); CARBON DIOXIDE 29 mmol/l (22-30); CHLORIDE 102 mmol/l (95-108); CREATININE 0.6 mg/dL (0.5-1.0); GFR FOR AFR.AMER. > 60 ML/MIN (>=60 (CALC)); GFR OTHER RACES > 60 ML/MIN (>=60 (CALC)); POTASSIUM 3.6 mmol/l (3.5-5.1); SGOT/AST 27 u/l (14-36); SODIUM 138 mmol/l (137-146); TOTAL PROTEIN 6.6 g/dL (6.3-8.2)
[2022-02-07 08:54] LABS: BILIRUBIN, TOTAL 0.3 mg/dL (0.0-1.4)
[2022-02-07] MEDS ORDERED: IMODIUM2 MG PO (12:52)
[2022-02-08] VITALS (7 sets, daily range): BP systolic 84–109; BP diastolic 43–62
[2022-02-08 05:42] LABS: HEMATOCRIT 29.7 % (37.0-47.0); HEMOGLOBIN 9.4 g/dl (12.0-16.0); IMMATURE GRANULOCYTES 0.4 % (0.0-5.0); MEAN CELL VOLUME 90.3 fL CALC (80.0-100.0); MEAN CORPUSCULAR HGB 28.6 pG CALC (26.0-32.0); MEAN CORPUSCULAR HGB CONC 31.6 g/dL CAL (32.0-36.0); NEUT# 3.09 thou/uL (2.00-7.15); RED BLOOD COUNT 3.29 mill/uL (4.20-5.60); RED CELL DISTRI WIDTH 15.5 % (11.5-15.5)
[2022-02-08 05:54] LABS: ANION GAP 11 (6-22 (CALC)); BUN 9 mg/dL (7-17); BUN/CREATININE RATIO 14 (12-20 (CALC)); CARBON DIOXIDE 26 mmol/l (22-30); CHLORIDE 107 mmol/l (95-108); CREATININE 0.6 mg/dL (0.5-1.0); GFR FOR AFR.AMER. > 60 ML/MIN (>=60 (CALC)); GFR OTHER RACES > 60 ML/MIN (>=60 (CALC)); MAGNESIUM 1.6 mg/dL (1.6-2.3); POTASSIUM 3.2 mmol/l (3.5-5.1); SODIUM 140 mmol/l (137-146)
[2022-02-08] MEDS ORDERED: LEVAQUIN750 M1 PO (09:38)
[2022-02-08] MEDS ORDERED: METRONIDAZOLE500 MG PO (09:38)
== END 2022-02-08 11:00 | disposition home health service (06) ==
LOC: ED 20:13 → ED-I 23:42 → ED 02-07 00:06 → MS2 02-07 00:07
PROVIDERS: Family Medicine; ADMIT Internal Medicine; ATTEND Internal Medicine
DX: K63.89 Other specified diseases of intestine (principal); K50.10 Crohn's disease of large intestine without complications; E87.1 Hypo-osmolality and hyponatremia; K21.9 Gastro-esophageal reflux disease without esophagitis; I48.91 Unspecified atrial fibrillation; I95.9 Hypotension, unspecified; F25.9 Schizoaffective disorder, unspecified; R41.3 Other amnesia; K91.2 Postsurgical malabsorption, not elsewhere classified; Y83.6 Removal of other organ (partial) (total) as the cause of abnormal reaction of the patient, or of later complication, without mention of misadventure at the time of the procedure; Z90.49 Acquired absence of other specified parts of digestive tract; Z93.0 Tracheostomy status; Z93.2 Ileostomy status; Z20.822 Contact with and (suspected) exposure to COVID-19
CPT/HCPCS: Q9967

== ENCOUNTER 2022-04-22 09:47 | Day surgery (SDC) | payer MEDICARE ==
[~2022-04-22] VITALS: Ht 182.9 cm; Wt 61.2 kg
[~2022-04-22 09:47] MED LIST changes: +D32000 UNI1 PO; +HUMIRA40 MG/0.4; +LEVAQUIN750 M1 PO; +LEVOTHYROXIN50 MC1 PO; +METOPROL TAR25 M1 PO; +METRONIDAZOLE500 MG PO; +MULTI VIT PO; +SOD CHLORIDE1 GM OD
[2022-04-22 12:39] VITALS: BP 96/53
== END 2022-04-22 12:54 | disposition home or self-care (01) ==
LOC: ORM 09:47
PROVIDERS: ATTEND Surgery
PROC: 0HB6XZZ Excision of Back Skin, External Approach (ICD-10-PCS; principal; 2022-04-22)
DX: L89.150 Pressure ulcer of sacral region, unstageable (principal); I48.91 Unspecified atrial fibrillation; F32.A Depression, unspecified; Z93.3 Colostomy status
CPT/HCPCS: C9290; J3490

== ENCOUNTER 2022-07-02 12:09 | Emergency (ER) | payer MEDICARE ==
[~2022-07-02] VITALS: Ht 182.9 cm; Wt 63.4 kg
[2022-07-02] VITALS (50 sets, daily range): BP systolic 84–129; BP diastolic 43–84
[2022-07-02 13:14] LABS: BASO% 0.2 % (0-3); EOS% 0.4 % (0-8); HEMATOCRIT 32.2 % (37.0-47.0); HEMOGLOBIN 10.4 g/dl (12.0-16.0); IMMATURE GRANULOCYTES 0.1 % (0.0-5.0); LYMPH% 13.4 % (15-41); MEAN CORPUSCULAR HGB 25.3 pG CALC (26.0-32.0); MEAN CORPUSCULAR HGB CONC 32.3 g/dL CAL (32.0-36.0); MONO% 9.4 % (2-13); NEUT# 7.34 thou/uL (2.00-7.15); NEUT% 76.5 % (42-76); RED BLOOD COUNT 4.11 mill/uL (4.20-5.60); RED CELL DISTRI WIDTH 14.4 % (11.5-15.5)
[2022-07-02 13:16] LABS: MEAN CELL VOLUME 78.3 fL CALC (80.0-100.0)
[2022-07-02 13:23] LABS: ALBUMIN 4.5 g/dL (3.2-5.0); ALKALINE PHOSPHATASE 133 u/l (38-126); BUN 17 mg/dL (7-17); BUN/CREATININE RATIO 22 (12-20 (CALC)); CARBON DIOXIDE 29 mmol/l (22-30); CREATININE 0.8 mg/dL (0.5-1.0); GFR FOR AFR.AMER. > 60 ML/MIN (>=60 (CALC)); GFR OTHER RACES > 60 ML/MIN (>=60 (CALC)); LIPASE 136 u/l (23-300); POTASSIUM 4.1 mmol/l (3.5-5.1); SGOT/AST 45 u/l (14-36); TOTAL PROTEIN 8.3 g/dL (6.3-8.2)
[2022-07-02 13:28] LABS: ANION GAP 13 (6-22 (CALC)); BILIRUBIN, TOTAL 0.1 mg/dL (0.02-1.3); CHLORIDE 88 mmol/l (95-108); SODIUM 126 mmol/l (137-146)
[2022-07-03 00:23] VITALS: BP 106/55
== END 2022-07-03 00:09 ==
LOC: ED 12:09
PROVIDERS: Family Medicine
DX: K56.609 Unspecified intestinal obstruction, unspecified as to partial versus complete obstruction (principal); I48.91 Unspecified atrial fibrillation; K21.9 Gastro-esophageal reflux disease without esophagitis; F10.10 Alcohol abuse, uncomplicated; Z93.3 Colostomy status; E03.9 Hypothyroidism, unspecified; Z90.49 Acquired absence of other specified parts of digestive tract
CPT/HCPCS: J2060; Q9967

== ENCOUNTER 2022-10-27 08:50 | Emergency (ER) | payer MEDICARE ==
[~2022-10-27] VITALS: Ht 182.9 cm; Wt 65.7 kg
[2022-10-27] VITALS (20 sets, daily range): BP systolic 93–138; BP diastolic 61–79
[2022-10-27 09:25] LABS: BASO% 0.2 % (0-3); EOS% 1.4 % (0-8); HEMATOCRIT 32.7 % (37.0-47.0); HEMOGLOBIN 10.1 g/dl (12.0-16.0); IMMATURE GRANULOCYTES 0.3 % (0.0-5.0); LYMPH% 18.9 % (15-41); MEAN CELL VOLUME 80.7 fL CALC (80.0-100.0); MEAN CORPUSCULAR HGB 24.9 pG CALC (26.0-32.0); MEAN CORPUSCULAR HGB CONC 30.9 g/dL CAL (32.0-36.0); MONO% 10.8 % (2-13); NEUT# 3.91 thou/uL (2.00-7.15); NEUT% 68.4 % (42-76); RED BLOOD COUNT 4.05 mill/uL (4.20-5.60); RED CELL DISTRI WIDTH 14.8 % (11.5-15.5)
[2022-10-27] MEDS ORDERED: BAYER ASPIRIN E81 MG PO (09:31)
[2022-10-27 09:32] LABS: MAGNESIUM 1.7 mg/dL (1.6-2.3)
[2022-10-27] MEDS ORDERED: PLAVIX75 MG PO (09:32)
[2022-10-27 09:33] LABS: ALBUMIN 4.6 g/dL (3.2-5.0); ALKALINE PHOSPHATASE 153 u/l (38-126); ANION GAP 15 (6-22 (CALC)); BILIRUBIN, TOTAL 0.4 mg/dL (0.02-1.3); BUN 14 mg/dL (7-17); BUN/CREATININE RATIO 19 (12-20 (CALC)); CARBON DIOXIDE 31 mmol/l (22-30); CHLORIDE 92 mmol/l (95-108); CREATININE 0.7 mg/dL (0.5-1.0); GFR FOR AFR.AMER. > 60 ML/MIN (>=60 (CALC)); GFR OTHER RACES > 60 ML/MIN (>=60 (CALC)); POTASSIUM 4.1 mmol/l (3.5-5.1); SGOT/AST 35 u/l (14-36); SODIUM 134 mmol/l (137-146); TOTAL PROTEIN 8.1 g/dL (6.3-8.2)
[2022-10-27] MEDS ORDERED: CODEINE SULF PO (09:33)
[2022-10-27] MEDS ORDERED: CARAFATE1 GM PO (09:36)
== END 2022-10-27 14:42 | disposition home or self-care (01) ==
LOC: ED 08:50
PROVIDERS: Family Medicine
DX: E87.1 Hypo-osmolality and hyponatremia (principal); E87.8 Other disorders of electrolyte and fluid balance, not elsewhere classified; I48.91 Unspecified atrial fibrillation; K21.9 Gastro-esophageal reflux disease without esophagitis; K50.90 Crohn's disease, unspecified, without complications; F32.A Depression, unspecified; Z90.49 Acquired absence of other specified parts of digestive tract

== ENCOUNTER 2022-11-03 12:25 | Observation (INO) | payer MEDICARE ==
[~2022-11-03] VITALS: Ht 182.9 cm; Wt 65.6 kg
[2022-11-03] VITALS (10 sets, daily range): BP systolic 101–122; BP diastolic 47–72
[~2022-11-03 12:25] MED LIST changes: +BAYER ASPIRIN E81 MG PO; +CARAFATE1 GM PO; +PLAVIX75 MG PO
[2022-11-03 13:00] LABS: BASO% 0.6 % (0-3); EOS% 0.9 % (0-8); IMMATURE GRANULOCYTES 0.2 % (0.0-5.0); LYMPH% 19.8 % (15-41); MEAN CELL VOLUME 79.8 fL CALC (80.0-100.0); MEAN CORPUSCULAR HGB 24.9 pG CALC (26.0-32.0); MEAN CORPUSCULAR HGB CONC 31.3 g/dL CAL (32.0-36.0); MONO% 11.5 % (2-13); NEUT# 4.43 thou/uL (2.00-7.15); RED BLOOD COUNT 4.01 mill/uL (4.20-5.60); RED CELL DISTRI WIDTH 14.2 % (11.5-15.5)
[2022-11-03 13:09] LABS: ALBUMIN 4.1 g/dL (3.2-5.0); ALKALINE PHOSPHATASE 132 u/l (38-126); ANION GAP 15 (6-22 (CALC)); BILIRUBIN, TOTAL 0.3 mg/dL (0.02-1.3); BUN 14 mg/dL (7-17); BUN/CREATININE RATIO 17 (12-20 (CALC)); CARBON DIOXIDE 27 mmol/l (22-30); CHLORIDE 93 mmol/l (95-108); CREATININE 0.8 mg/dL (0.5-1.0); GFR FOR AFR.AMER. > 60 ML/MIN (>=60 (CALC)); GFR OTHER RACES > 60 ML/MIN (>=60 (CALC)); POTASSIUM 4.1 mmol/l (3.5-5.1); SGOT/AST 52 u/l (14-36); SODIUM 131 mmol/l (137-146); TOTAL PROTEIN 7.5 g/dL (6.3-8.2)
[2022-11-03 13:20] LABS: MAGNESIUM 1.5 mg/dL (1.6-2.3)
[2022-11-03 13:55] LABS: TSH, 3RD GENERATION 3.15 uIU/mL (0.47 - 4.68)
[2022-11-03 14:22] LABS: URINE BILIRUBIN - DIPSTICK NEGATIVE (NEGATIVE); URINE BLOOD DIPSTICK NEGATIVE (NEGATIVE); URINE COLOR YELLOW; URINE GLUCOSE - DIPSTICK NEGATIVE (NEGATIVE); URINE KETONE NEGATIVE (NEGATIVE); URINE LEUK ESTERASE TRACE (NEGATIVE); URINE NITRITE - DIPSTICK NEGATIVE (Negative); URINE PROTEIN - DIPSTICK NEGATIVE (NEG-TRACE); URINE SPECIFIC GRAVITY <=1.005; URINE UROBILINOGEN - DIPSTICK 0.2 E.U./dL (0.2)
[2022-11-03] MEDS ORDERED: MIDODRINE10 MG PO (15:29)
[2022-11-03] MEDS ORDERED: MIRTAZAPINE45 M2 PO (15:32)
[2022-11-03] MEDS ORDERED: ABILIFY20 MG PO (15:34)
[2022-11-03] MEDS ORDERED: CREON24000 UNT PO (15:37)
[2022-11-04] VITALS (9 sets, daily range): BP systolic 88–110; BP diastolic 46–86
[2022-11-04 05:40] LABS: HEMATOCRIT 33.9 % (37.0-47.0); HEMOGLOBIN 10.9 g/dl (12.0-16.0); MEAN CELL VOLUME 78.5 fL CALC (80.0-100.0); MEAN CORPUSCULAR HGB 25.2 pG CALC (26.0-32.0); MEAN CORPUSCULAR HGB CONC 32.2 g/dL CAL (32.0-36.0); RED BLOOD COUNT 4.32 mill/uL (4.20-5.60); RED CELL DISTRI WIDTH 14.6 % (11.5-15.5)
[2022-11-04 05:52] LABS: ALBUMIN 3.9 g/dL (3.2-5.0); ALKALINE PHOSPHATASE 151 u/l (38-126); ANION GAP 12 (6-22 (CALC)); BUN 12 mg/dL (7-17); BUN/CREATININE RATIO 14 (12-20 (CALC)); CARBON DIOXIDE 31 mmol/l (22-30); CHLORIDE 97 mmol/l (95-108); CREATININE 0.9 mg/dL (0.5-1.0); GFR FOR AFR.AMER. > 60 ML/MIN (>=60 (CALC)); GFR OTHER RACES > 60 ML/MIN (>=60 (CALC)); POTASSIUM 3.8 mmol/l (3.5-5.1); SGOT/AST 35 u/l (14-36); SODIUM 136 mmol/l (137-146); TOTAL PROTEIN 7.3 g/dL (6.3-8.2)
[2022-11-04 05:59] LABS: BILIRUBIN, TOTAL 0.5 mg/dL (0.02-1.3); MAGNESIUM 1.9 mg/dL (1.6-2.3)
[2022-11-04] MEDS ORDERED: ALDACTONE25 MG PO (19:49)
== END 2022-11-04 20:45 | disposition home health service (06) ==
LOC: ED 12:25 → MS2 15:25
PROVIDERS: Family Medicine; ADMIT Internal Medicine; ATTEND Internal Medicine
DX: J81.1 Chronic pulmonary edema (principal); I48.91 Unspecified atrial fibrillation; I95.9 Hypotension, unspecified; E03.9 Hypothyroidism, unspecified; E87.1 Hypo-osmolality and hyponatremia; F20.9 Schizophrenia, unspecified; K50.90 Crohn's disease, unspecified, without complications; K21.9 Gastro-esophageal reflux disease without esophagitis; Z95.0 Presence of cardiac pacemaker; Z90.49 Acquired absence of other specified parts of digestive tract; Z95.818 Presence of other cardiac implants and grafts; Z93.2 Ileostomy status; Z20.822 Contact with and (suspected) exposure to COVID-19
CPT/HCPCS: J3475

== ENCOUNTER 2023-01-14 15:30 | Observation (INO) | payer MEDICARE ==
[~2023-01-14] VITALS: Ht 182.9 cm; Wt 71.8 kg
[~2023-01-14 15:30] MED LIST changes: +ABILIFY20 MG PO; +ALDACTONE25 MG PO; +MIDODRINE10 MG PO; +MIRTAZAPINE45 M2 PO
[2023-01-14 15:41] VITALS: BP 124/84
[2023-01-14 16:00] VITALS: BP 124/70
[2023-01-14 16:08] LABS: BASO% 0.4 % (0-3); EOS% 1.6 % (0-8); HEMATOCRIT 33.9 % (37.0-47.0); HEMOGLOBIN 11.3 g/dl (12.0-16.0); IMMATURE GRANULOCYTES 0.2 % (0.0-5.0); MEAN CELL VOLUME 83.5 fL CALC (80.0-100.0); MEAN CORPUSCULAR HGB 27.8 pG CALC (26.0-32.0); MEAN CORPUSCULAR HGB CONC 33.3 g/dL CAL (32.0-36.0); MONO% 12.4 % (2-13); NEUT# 3.29 thou/uL (2.00-7.15); NEUT% 64.4 % (42-76); RED BLOOD COUNT 4.06 mill/uL (4.20-5.60); RED CELL DISTRI WIDTH 17.8 % (11.5-15.5)
[2023-01-14 16:21] LABS: ALBUMIN 4.2 g/dL (3.2-5.0); ALKALINE PHOSPHATASE 99 u/l (38-126); ANION GAP 11 (6-22 (CALC)); BILIRUBIN, TOTAL 0.5 mg/dL (0.02-1.3); BUN 11 mg/dL (7-17); BUN/CREATININE RATIO 13 (12-20 (CALC)); CARBON DIOXIDE 27 mmol/l (22-30); CHLORIDE 96 mmol/l (95-108); CREATININE 0.8 mg/dL (0.5-1.0); GFR FOR AFR.AMER. > 60 ML/MIN (>=60 (CALC)); GFR OTHER RACES > 60 ML/MIN (>=60 (CALC)); POTASSIUM 4.1 mmol/l (3.5-5.1); SGOT/AST 45 u/l (14-36); TOTAL PROTEIN 7.3 g/dL (6.3-8.2)
[2023-01-14 16:30] LABS: SODIUM 130 mmol/l (137-146)
[2023-01-14 16:35] VITALS: BP 140/79
[2023-01-14 17:12] LABS: INTERNATIONAL NORMALIZED RATIO 1.2 RATIO (0.7-1.3)
[2023-01-14 17:16] LABS: CALCULATED LDLCHOLESTEROL 45 mg/dL (62-129 (CALC)); CHOLESTEROL HDL RATIO 2.6 (<4.4 (CALC)); HDL CHOLESTEROL 41 mg/dL (39.0-59.0); TOTAL CHOLESTEROL 106 mg/dl (0-199); TOTAL TRIGLYCERIDES 100 mg/dl (0-149); VLDL CHOLESTROL 20 mg/dl (2-49 (CALC))
[2023-01-14 18:31] VITALS: BP 131/67
[2023-01-14 19:23] LABS: URINE BILIRUBIN - DIPSTICK Negative (NEGATIVE); URINE BLOOD DIPSTICK Negative (NEGATIVE); URINE COLOR Yellow; URINE GLUCOSE - DIPSTICK Negative (NEGATIVE); URINE KETONE Negative (NEGATIVE); URINE LEUK ESTERASE Trace (NEGATIVE); URINE NITRITE - DIPSTICK Negative (Negative); URINE PROTEIN - DIPSTICK Negative (NEG-TRACE); URINE UROBILINOGEN - DIPSTICK 0.2 E.U./dL (0.2)
[2023-01-14] MEDS ORDERED: LEVOTHYROXIN75 MC1 PO (20:49)
[2023-01-14] MEDS ORDERED: CENTRUM SILVER PO (20:53)
[2023-01-14] MEDS ORDERED: MAGNESIUM4 GM/100 M IV (20:55)
[2023-01-14] MEDS ORDERED: SOD CHLORIDE1 GM PO (21:00)
[2023-01-14] MEDS ORDERED: KLOR-CON M2020 MEQ PO (21:04)
[2023-01-14] MEDS ORDERED: ZYPREXA20 MG PO (21:10)
[2023-01-14 23:33] VITALS: BP 115/61
[2023-01-15 03:30] VITALS: BP 114/50
[2023-01-15 06:19] VITALS: BP 100/49
[2023-01-15 06:57] LABS: BASO% 0.2 % (0-3); EOS% 1.4 % (0-8); HEMATOCRIT 32.9 % (37.0-47.0); HEMOGLOBIN 11.1 g/dl (12.0-16.0); IMMATURE GRANULOCYTES 0.4 % (0.0-5.0); LYMPH% 22.1 % (15-41); MEAN CELL VOLUME 82.7 fL CALC (80.0-100.0); MEAN CORPUSCULAR HGB 27.9 pG CALC (26.0-32.0); MEAN CORPUSCULAR HGB CONC 33.7 g/dL CAL (32.0-36.0); MONO% 13.5 % (2-13); NEUT# 3.05 thou/uL (2.00-7.15); NEUT% 62.4 % (42-76); RED BLOOD COUNT 3.98 mill/uL (4.20-5.60); RED CELL DISTRI WIDTH 18.1 % (11.5-15.5)
[2023-01-15 07:17] LABS: ALBUMIN 3.7 g/dL (3.2-5.0); BILIRUBIN, TOTAL 0.6 mg/dL (0.02-1.3); TOTAL PROTEIN 6.5 g/dL (6.3-8.2)
[2023-01-15 07:18] LABS: CHOLESTEROL HDL RATIO 2.4 (<4.4 (CALC))
[2023-01-15 07:19] LABS: ANION GAP 11 (6-22 (CALC)); BUN 11 mg/dL (7-17); BUN/CREATININE RATIO 14 (12-20 (CALC)); CARBON DIOXIDE 27 mmol/l (22-30); CHLORIDE 103 mmol/l (95-108); CREATININE 0.8 mg/dL (0.5-1.0); GFR FOR AFR.AMER. > 60 ML/MIN (>=60 (CALC)); GFR OTHER RACES > 60 ML/MIN (>=60 (CALC)); SODIUM 137 mmol/l (137-146)
[2023-01-15 11:03] VITALS: BP 112/61
== END 2023-01-15 14:12 | disposition home or self-care (01) ==
LOC: ED 15:30 → ED-I 19:49 → ED 20:01 → MS2 20:02
PROVIDERS: Family Medicine; Nurse Practitioner; ADMIT Student in an Organized Health Care Education/Training Program; ATTEND Student in an Organized Health Care Education/Training Program
DX: E87.1 Hypo-osmolality and hyponatremia (principal); E86.0 Dehydration; K52.89 Other specified noninfective gastroenteritis and colitis; E83.42 Hypomagnesemia; K21.9 Gastro-esophageal reflux disease without esophagitis; I48.91 Unspecified atrial fibrillation; F32.A Depression, unspecified; Z93.2 Ileostomy status; Z90.49 Acquired absence of other specified parts of digestive tract; Z95.0 Presence of cardiac pacemaker; Z95.818 Presence of other cardiac implants and grafts

== ENCOUNTER 2023-10-27 05:48 | Inpatient (IN) | payer MEDICARE ==
[2023-10-27] VITALS (39 sets, daily range): BP systolic 72–106; BP diastolic 36–71
[~2023-10-27] VITALS: Ht 182.9 cm; Wt 56.1 kg
[~2023-10-27 05:48] MED LIST changes: +CALCIUM + VITAM1 TAB PO; +CENTRUM SILVER1 TA1 PO; +HUMIRA40 MG/0.4 IJ; +LASIX 20 MG TAB20 MG PO; +LEVOTHYROXIN75 MC1 PO; +MAGNESIUM4 GM/100 M IV; +PREDNISONE20 MG PO; +VALACYCLOVIR HYD1 GM PO; +ZYPREXA20 MG PO
[2023-10-27] MEDS ORDERED: SODIUM CHLORIDE 0.9% 1,000 ML IV STA ×2 (06:28)
[2023-10-27] MEDS ORDERED: ACETAMINOPHEN 1,000 MG/100 ML VIAL IV ONE (06:40)
[2023-10-27] MEDS ORDERED: ONDANSETRON HCl 4 MG/2 ML SDV IV ONE (07:15)
[2023-10-27 07:44] LABS: BASO% 0.2 % (0-3); EOS% 0.2 % (0-8); HEMATOCRIT 44.2 % (37.0-47.0); HEMOGLOBIN 15.3 g/dl (12.0-16.0); IMMATURE GRANULOCYTES 1.1 % (0.0-5.0); LYMPH% 10.8 % (15-41); MEAN CORPUSCULAR HGB 29.4 pG CALC (26.0-32.0); MEAN CORPUSCULAR HGB CONC 34.6 g/dL CAL (32.0-36.0); MONO% 11.3 % (2-13); NEUT# 9.98 thou/uL (2.00-7.15); NEUT% 76.4 % (42-76); RED BLOOD COUNT 5.2 mill/uL (4.20-5.60)
[2023-10-27] MEDS ORDERED: LEVOTHYROXIN100 MCG PO (07:50)
[2023-10-27 08:49] LABS: ALBUMIN 4.2 g/dL (3.2-5.0); ALKALINE PHOSPHATASE 165 u/l (38-126); BILIRUBIN, TOTAL 0.8 mg/dL (0.02-1.3); CHLORIDE 86 mmol/l (95-108); SGOT/AST 39 u/l (14-36); TOTAL PROTEIN 7.8 g/dL (6.3-8.2)
[2023-10-27 08:55] LABS: ANION GAP 19 (6-22 (CALC)); BUN/CREATININE RATIO 33 (12-20 (CALC)); CARBON DIOXIDE 20 mmol/l (22-30); CREATININE 2.6 mg/dL (0.5-1.0); ESTIMATED GFR 21 ML/MIN (>=90 (CALC)); POTASSIUM 5.9 mmol/l (3.5-5.1)
[2023-10-27 08:57] LABS: BUN 85 mg/dL (7-17); SODIUM 119 mmol/l (137-146)
[2023-10-27 09:18] LABS: LIPASE 22 u/l (23-300)
[2023-10-27] MEDS ORDERED: METOCLOPRAMIDE HCL 10 MG/2 ML SDV IV ONE (09:50)
[2023-10-27 11:04] LABS: CREATININE 2.4 mg/dL (0.5-1.0); POTASSIUM 5.6 mmol/l (3.5-5.1)
[2023-10-27] MEDS ORDERED: MAGNESIUM SULFATE HEPTAHYDRATE 50 ML IV ONE (12:00)
[2023-10-27] MEDS ORDERED: PROMETHAZINE HCL 25 MG/ML AMP IV PRN (12:55)
[2023-10-27] MEDS ORDERED: ONDANSETRON HCl 4 MG/2 ML SDV IV PRN (12:55)
[2023-10-27] MEDS ORDERED: SODIUM CHLORIDE 0.9% 1,000 ML IV SCH ×2 (13:10→21:55)
[2023-10-27] MEDS ORDERED: HYDROmorphone HCL 2 MG/AMP IV PRN (13:35)
[2023-10-27] MEDS ORDERED: SODIUM CHLORIDE 0.9% 0 ML IV ONE (13:41)
[2023-10-27] MEDS ORDERED: CEFEPIME HYDROCHLORIDE 1 GM in SODIUM CHLORIDE 0.9% 50 ML IV SCH (14:00)
[2023-10-27] MEDS ORDERED: AZITHROMYCIN 500 MG in SODIUM CHLORIDE 0.9% 250 ML IV SCH (14:00)
[2023-10-27] MEDS ORDERED: SODIUM CHLORIDE 0.9% 1,000 ML IV PRN (14:09)
[2023-10-27] MEDS ORDERED: MIDODRINE HCL 5 MG TAB PO SCH (15:00)
[2023-10-27] MEDS ORDERED: SODIUM CHLORIDE 1 GM/TAB TAB PO SCH (21:00)
[2023-10-27] MEDS ORDERED: SODIUM CHLORIDE 0.9% 500 ML IV ONE (22:55)
[2023-10-27] MEDS ORDERED: NOREPINEPHRINE BITARTRATE 4 MG in DEXTROSE 5% 250 ML IV PRN (22:55)
[2023-10-27 23:38] LABS: IMMATURE GRANULOCYTES 0.8 % (0.0-5.0); MEAN CELL VOLUME 86.3 fL CALC (80.0-100.0); MEAN CORPUSCULAR HGB 29.5 pG CALC (26.0-32.0); MEAN CORPUSCULAR HGB CONC 34.1 g/dL CAL (32.0-36.0); MONO% 16.5 % (2-13); NEUT# 5.63 thou/uL (2.00-7.15); NEUT% 75.7 % (42-76); RED BLOOD COUNT 4.75 mill/uL (4.20-5.60)
[2023-10-27 23:48] LABS: ALBUMIN 3.6 g/dL (3.2-5.0); BILIRUBIN, TOTAL 0.6 mg/dL (0.02-1.3); POTASSIUM 4.7 mmol/l (3.5-5.1); TOTAL PROTEIN 6.9 g/dL (6.3-8.2)
[2023-10-28] VITALS (64 sets, daily range): BP systolic 37–120; BP diastolic 23–105
[2023-10-28 00:03] LABS: CREATININE 2.7 mg/dL (0.5-1.0)
[2023-10-28 05:20] LABS: BASO% 0.1 % (0-3); HEMATOCRIT 41.5 % (37.0-47.0); HEMOGLOBIN 14.5 g/dl (12.0-16.0); IMMATURE GRANULOCYTES 0.9 % (0.0-5.0); LYMPH% 5.2 % (15-41); MEAN CELL VOLUME 85.7 fL CALC (80.0-100.0); MEAN CORPUSCULAR HGB CONC 34.9 g/dL CAL (32.0-36.0); NEUT# 10.82 thou/uL (2.00-7.15); NEUT% 84.8 % (42-76); RED BLOOD COUNT 4.84 mill/uL (4.20-5.60); RED CELL DISTRI WIDTH 17.2 % (11.5-15.5)
[2023-10-28 05:49] LABS: ALBUMIN 3.6 g/dL (3.2-5.0); BILIRUBIN, TOTAL 0.7 mg/dL (0.02-1.3); POTASSIUM 4.3 mmol/l (3.5-5.1)
[2023-10-28 05:55] LABS: CREATININE 2.5 mg/dL (0.5-1.0)
[2023-10-28 05:56] LABS: MAGNESIUM 2.4 mg/dL (1.6-2.3)
[2023-10-28] MEDS ORDERED: SODIUM CHLORIDE 0.9% 1,000 ML IV SCH (06:40)
[2023-10-28] MEDS ORDERED: ALPRAZolam 0.5 MG/TAB PO PRN (11:10)
== END 2023-10-28 16:28 | disposition short-term general hospital (02) | DRG 871 ==
LOC: ED 05:48 → ED-I 06:52 → ED 11:18 → MS2 11:19 → ICU 13:11 → MS2 13:11 → ICU 21:45
PROVIDERS: Family Medicine; Internal Medicine; Nurse Practitioner Family; ADMIT Internal Medicine; ATTEND Internal Medicine
PROC: 0T9B70Z Drainage of Bladder with Drainage Device, Via Natural or Artificial Opening (ICD-10-PCS; 2023-10-27)
PROC: 3E033XZ Introduction of Vasopressor into Peripheral Vein, Percutaneous Approach (ICD-10-PCS; principal; 2023-10-28)
DX: A41.9 Sepsis, unspecified organism (principal); J18.9 Pneumonia, unspecified organism; N17.0 Acute kidney failure with tubular necrosis; R65.21 Severe sepsis with septic shock; E87.1 Hypo-osmolality and hyponatremia; K91.2 Postsurgical malabsorption, not elsewhere classified; K50.90 Crohn's disease, unspecified, without complications; K56.7 Ileus, unspecified; E87.20 Acidosis, unspecified; R64 Cachexia; Z68.1 Body mass index [BMI] 19.9 or less, adult; E86.9 Volume depletion, unspecified; R09.02 Hypoxemia; I95.9 Hypotension, unspecified; E87.5 Hyperkalemia; E83.42 Hypomagnesemia; E83.51 Hypocalcemia; D64.9 Anemia, unspecified; F32.A Depression, unspecified; F41.9 Anxiety disorder, unspecified; K21.9 Gastro-esophageal reflux disease without esophagitis; I48.91 Unspecified atrial fibrillation; Y83.6 Removal of other organ (partial) (total) as the cause of abnormal reaction of the patient, or of later complication, without mention of misadventure at the time of the procedure; Z93.2 Ileostomy status; Z95.0 Presence of cardiac pacemaker; Z95.818 Presence of other cardiac implants and grafts; Z90.49 Acquired absence of other specified parts of digestive tract
CPT/HCPCS: J0131; J0692; J3475

== ENCOUNTER 2023-11-29 23:31 | Emergency (ER) | payer MEDICARE ==
[~2023-11-29] VITALS: Ht 182.9 cm; Wt 51.2 kg
[~2023-11-29 23:31] MED LIST changes: +LEVOTHYROXIN100 MCG PO
[2023-11-29 23:45] VITALS: BP 106/69
[2023-11-30] VITALS (11 sets, daily range): BP systolic 91–105; BP diastolic 60–65
[2023-11-30] MEDS ORDERED: SODIUM CHLORIDE 0.9% 1,000 ML IV ONE (00:10)
[2023-11-30 01:28] LABS: BASO% 0.2 % (0-3); EOS% 0.1 % (0-8); HEMATOCRIT 34.4 % (37.0-47.0); HEMOGLOBIN 11.6 g/dl (12.0-16.0); IMMATURE GRANULOCYTES 0.3 % (0.0-5.0); LYMPH% 16.8 % (15-41); MEAN CELL VOLUME 90.5 fL CALC (80.0-100.0); MEAN CORPUSCULAR HGB 30.5 pG CALC (26.0-32.0); MEAN CORPUSCULAR HGB CONC 33.7 g/dL CAL (32.0-36.0); MONO% 5.4 % (2-13); NEUT# 9.09 thou/uL (2.00-7.15); NEUT% 77.2 % (42-76); RED BLOOD COUNT 3.8 mill/uL (4.20-5.60); RED CELL DISTRI WIDTH 15.9 % (11.5-15.5)
[2023-11-30 01:33] LABS: BILIRUBIN, TOTAL 0.6 mg/dL (0.02-1.3); CREATININE 1.3 mg/dL (0.5-1.0); MAGNESIUM 1.2 mg/dL (1.6-2.3); POTASSIUM 4.5 mmol/l (3.5-5.1); TOTAL PROTEIN 7.8 g/dL (6.3-8.2)
[2023-11-30 01:34] LABS: ALBUMIN 4.3 g/dL (3.2-5.0)
[2023-11-30] MEDS ORDERED: MAGNESIUM SULFATE HEPTAHYDRATE 50 ML IV ONE (01:50)
[2023-11-30] MEDS ORDERED: HEPARIN SODIUM FLUSH (PORCINE) 100 UNIT/ML 5 ML SYR IV ONE (04:35)
== END 2023-11-30 04:34 | disposition home or self-care (01) ==
LOC: ED 23:31
PROVIDERS: Emergency Medicine
DX: R53.1 Weakness (principal); E83.42 Hypomagnesemia; R19.7 Diarrhea, unspecified; K50.90 Crohn's disease, unspecified, without complications; F20.9 Schizophrenia, unspecified; I48.91 Unspecified atrial fibrillation; Z95.0 Presence of cardiac pacemaker; Z93.3 Colostomy status; Z63.4 Disappearance and death of family member; Z95.818 Presence of other cardiac implants and grafts; Z90.49 Acquired absence of other specified parts of digestive tract
CPT/HCPCS: J3475

== ENCOUNTER 2023-12-25 10:11 | Inpatient (IN) | payer MEDICARE ==
[2023-12-25] VITALS (30 sets, daily range): BP systolic 83–98; BP diastolic 41–56
[~2023-12-25] VITALS: Ht 182.9 cm; Wt 47.9 kg
[2023-12-25] MEDS ORDERED: SODIUM CHLORIDE 0.9% 1,000 ML IV ONE ×2 (10:20→15:05)
[2023-12-25 10:47] LABS: BASO% 0.2 % (0-3); EOS% 0.2 % (0-8); HEMATOCRIT 31.8 % (37.0-47.0); HEMOGLOBIN 11.1 g/dl (12.0-16.0); IMMATURE GRANULOCYTES 0.6 % (0.0-5.0); MEAN CELL VOLUME 83.2 fL CALC (80.0-100.0); MEAN CORPUSCULAR HGB 29.1 pG CALC (26.0-32.0); MEAN CORPUSCULAR HGB CONC 34.9 g/dL CAL (32.0-36.0); MONO% 4.5 % (2-13); NEUT# 11.22 thou/uL (2.00-7.15); NEUT% 88.5 % (42-76); RED BLOOD COUNT 3.82 mill/uL (4.20-5.60); RED CELL DISTRI WIDTH 13.7 % (11.5-15.5)
[2023-12-25 10:58] LABS: ALBUMIN 4.2 g/dL (3.2-5.0); ALKALINE PHOSPHATASE 96 u/l (38-126); CREATININE 1.4 mg/dL (0.5-1.0); ESTIMATED GFR 44 ML/MIN (>=90 (CALC)); LIPASE 29 u/l (23-300); POTASSIUM 3.9 mmol/l (3.5-5.1); SGOT/AST 32 u/l (14-36); TOTAL PROTEIN 7.6 g/dL (6.3-8.2)
[2023-12-25] MEDS ORDERED: ONDANSETRON HCl 4 MG/2 ML SDV IV ONE (11:00)
[2023-12-25 11:10] LABS: BUN 68 mg/dL (7-17); BUN/CREATININE RATIO 49 (12-20 (CALC))
[2023-12-25 11:11] LABS: ANION GAP 14 (6-22 (CALC)); BILIRUBIN, TOTAL 0.9 mg/dL (0.02-1.3); CARBON DIOXIDE 32 mmol/l (22-30); CHLORIDE 70 mmol/l (95-108); SODIUM 112 mmol/l (137-146)
[2023-12-25] MEDS ORDERED: MAGNESIUM SULFATE HEPTAHYDRATE 50 ML IV ONE ×2 (12:25→17:05)
[2023-12-25 12:55] LABS: URINE BILIRUBIN - DIPSTICK Negative (NEGATIVE); URINE BLOOD DIPSTICK Negative (NEGATIVE); URINE COLOR Yellow; URINE GLUCOSE - DIPSTICK Negative (NEGATIVE); URINE KETONE 15 mg/dL (NEGATIVE); URINE LEUK ESTERASE Negative (NEGATIVE); URINE NITRITE - DIPSTICK Negative (Negative); URINE PH 5.5 (4.5-8.0); URINE PROTEIN - DIPSTICK Negative (NEG-TRACE); URINE SPECIFIC GRAVITY <=1.005; URINE UROBILINOGEN - DIPSTICK 0.2 E.U./dL (0.2)
[2023-12-25] MEDS ORDERED: BENZOCAINE MT ONE (14:10)
[2023-12-25] MEDS ORDERED: SODIUM CHLORIDE 0.9% 1,000 ML IV PRN (17:05)
[2023-12-25] MEDS ORDERED: ALPRAZolam 0.5 MG/TAB PO PRN (17:10)
[2023-12-25] MEDS ORDERED: ONDANSETRON HCl 4 MG/2 ML SDV IV PRN (17:10)
[2023-12-25] MEDS ORDERED: CODEINE SULFATE PO PRN (17:10)
[2023-12-25] MEDS ORDERED: OLANZapine 5 MG/TAB PO SCH (21:00)
[2023-12-25] MEDS ORDERED: MIDODRINE HCL 5 MG TAB PO SCH (21:00)
[2023-12-25] MEDS ORDERED: ENOXAPARIN SODIUM 40 MG/0.4 ML SYR SC SCH (21:00)
[2023-12-26] VITALS (7 sets, daily range): BP systolic 87–108; BP diastolic 36–52
[2023-12-26 05:31] LABS: HEMATOCRIT 29.2 % (37.0-47.0); HEMOGLOBIN 10.1 g/dl (12.0-16.0); MEAN CELL VOLUME 85.1 fL CALC (80.0-100.0); MEAN CORPUSCULAR HGB 29.4 pG CALC (26.0-32.0); MEAN CORPUSCULAR HGB CONC 34.6 g/dL CAL (32.0-36.0); RED BLOOD COUNT 3.43 mill/uL (4.20-5.60)
[2023-12-26 05:49] LABS: CREATININE 0.7 mg/dL (0.5-1.0)
[2023-12-26 05:54] LABS: ALBUMIN 3.1 g/dL (3.2-5.0); BILIRUBIN, TOTAL 0.5 mg/dL (0.02-1.3); MAGNESIUM 2.6 mg/dL (1.6-2.3); POTASSIUM 2.6 mmol/l (3.5-5.1); TOTAL PROTEIN 5.9 g/dL (6.3-8.2)
[2023-12-26] MEDS ORDERED: POTASSIUM CHLORIDE 20MEQ 100 ML IV SCH (09:00)
[2023-12-26] MEDS ORDERED: DIATRIZOATE MEGLUMINE & SODIUM 30 ML/BTL BTL PO SCH (10:30)
[2023-12-26 13:53] LABS: ALBUMIN 3.4 g/dL (3.2-5.0); BILIRUBIN, TOTAL 0.4 mg/dL (0.02-1.3); CREATININE 0.7 mg/dL (0.5-1.0); TOTAL PROTEIN 6.6 g/dL (6.3-8.2)
[2023-12-26 14:08] LABS: POTASSIUM 3.6 mmol/l (3.5-5.1)
[2023-12-27] VITALS (13 sets, daily range): BP systolic 101–129; BP diastolic 50–77
[2023-12-27 05:28] LABS: HEMATOCRIT 32.5 % (37.0-47.0); MEAN CELL VOLUME 88.1 fL CALC (80.0-100.0); MEAN CORPUSCULAR HGB 29.8 pG CALC (26.0-32.0); MEAN CORPUSCULAR HGB CONC 33.8 g/dL CAL (32.0-36.0); RED BLOOD COUNT 3.69 mill/uL (4.20-5.60); RED CELL DISTRI WIDTH 14.1 % (11.5-15.5)
[2023-12-27 05:44] LABS: ALBUMIN 3.3 g/dL (3.2-5.0); BILIRUBIN, TOTAL 0.4 mg/dL (0.02-1.3); CREATININE 0.5 mg/dL (0.5-1.0); POTASSIUM 2.9 mmol/l (3.5-5.1); TOTAL PROTEIN 6.4 g/dL (6.3-8.2)
[2023-12-27] MEDS ORDERED: D5 1/2 NaCL W/KCL 20MEQ 1,000 ML IV PRN (08:15)
[2023-12-27] MEDS ORDERED: POTASSIUM CHLORIDE 20MEQ 100 ML IV SCH (10:00)
[2023-12-28] VITALS (10 sets, daily range): BP systolic 90–109; BP diastolic 46–67
[2023-12-28 06:23] LABS: BASO% 0.4 % (0-3); EOS% 4.4 % (0-8); HEMATOCRIT 32.1 % (37.0-47.0); HEMOGLOBIN 10.5 g/dl (12.0-16.0); IMMATURE GRANULOCYTES 0.9 % (0.0-5.0); LYMPH% 23.8 % (15-41); MEAN CELL VOLUME 89.9 fL CALC (80.0-100.0); MEAN CORPUSCULAR HGB 29.4 pG CALC (26.0-32.0); MEAN CORPUSCULAR HGB CONC 32.7 g/dL CAL (32.0-36.0); MONO% 10.3 % (2-13); NEUT# 4.1 thou/uL (2.00-7.15); NEUT% 60.2 % (42-76); RED BLOOD COUNT 3.57 mill/uL (4.20-5.60); RED CELL DISTRI WIDTH 14.4 % (11.5-15.5)
[2023-12-28 06:37] LABS: ALBUMIN 2.8 g/dL (3.2-5.0); BILIRUBIN, TOTAL 0.4 mg/dL (0.02-1.3); CREATININE 0.5 mg/dL (0.5-1.0); MAGNESIUM 1.5 mg/dL (1.6-2.3); TOTAL PROTEIN 5.7 g/dL (6.3-8.2)
[2023-12-28 06:41] LABS: POTASSIUM 3.6 mmol/l (3.5-5.1)
[2023-12-28] MEDS ORDERED: D5NS W/KCL 20MEQ 1000ML 1,000 ML IV PRN (07:45)
[2023-12-28] MEDS ORDERED: ACETAMINOPHEN 325 MG/TAB PO PRN (08:25)
[2023-12-28] MEDS ORDERED: MAGNESIUM SULFATE HEPTAHYDRATE 50 ML IV SCH (08:30)
[2023-12-29 03:20] VITALS: BP 94/53
[2023-12-29 04:24] VITALS: BP 94/53
[2023-12-29 04:40] LABS: BASO% 0.9 % (0-3); EOS% 6.1 % (0-8); HEMATOCRIT 31.7 % (37.0-47.0); HEMOGLOBIN 10.6 g/dl (12.0-16.0); IMMATURE GRANULOCYTES 0.8 % (0.0-5.0); LYMPH% 21.1 % (15-41); MEAN CELL VOLUME 90.3 fL CALC (80.0-100.0); MEAN CORPUSCULAR HGB 30.2 pG CALC (26.0-32.0); MEAN CORPUSCULAR HGB CONC 33.4 g/dL CAL (32.0-36.0); MONO% 8.4 % (2-13); NEUT# 4.84 thou/uL (2.00-7.15); NEUT% 62.7 % (42-76); RED BLOOD COUNT 3.51 mill/uL (4.20-5.60); RED CELL DISTRI WIDTH 14.4 % (11.5-15.5)
[2023-12-29 04:47] LABS: ALBUMIN 2.6 g/dL (3.2-5.0); BILIRUBIN, TOTAL 0.3 mg/dL (0.02-1.3); CREATININE 0.5 mg/dL (0.5-1.0); MAGNESIUM 1.5 mg/dL (1.6-2.3); POTASSIUM 3.6 mmol/l (3.5-5.1); TOTAL PROTEIN 5.5 g/dL (6.3-8.2)
[2023-12-29 07:12] VITALS: BP 95/55
[2023-12-29] MEDS ORDERED: MAGNESIUM SULFATE HEPTAHYDRATE 50 ML IV SCH (08:00)
[2023-12-29 11:49] VITALS: BP 97/60
[2023-12-29 13:00] VITALS: BP 93/49
== END 2023-12-29 13:08 | disposition home health service (06) | DRG 389 ==
LOC: ED 10:11 → ED-I 10:43 → ED 10:43 → ED-I 16:00 → ED 16:18 → MS2 16:19
PROVIDERS: Family Medicine; Nurse Practitioner Family; ADMIT Internal Medicine; ATTEND Internal Medicine
PROC: 0T9B70Z Drainage of Bladder with Drainage Device, Via Natural or Artificial Opening (ICD-10-PCS; principal; 2023-12-25)
DX: K56.0 Paralytic ileus (principal); E87.1 Hypo-osmolality and hyponatremia; K50.90 Crohn's disease, unspecified, without complications; K91.2 Postsurgical malabsorption, not elsewhere classified; N17.9 Acute kidney failure, unspecified; K63.89 Other specified diseases of intestine; E87.6 Hypokalemia; E83.42 Hypomagnesemia; I95.9 Hypotension, unspecified; I10 Essential (primary) hypertension; I48.91 Unspecified atrial fibrillation; R33.9 Retention of urine, unspecified; F20.9 Schizophrenia, unspecified; Y83.6 Removal of other organ (partial) (total) as the cause of abnormal reaction of the patient, or of later complication, without mention of misadventure at the time of the procedure; Z95.0 Presence of cardiac pacemaker; Z93.3 Colostomy status; Z95.818 Presence of other cardiac implants and grafts; Z95.828 Presence of other vascular implants and grafts
CPT/HCPCS: J1650; J3475; Q9967